=== PATIENT | female | born 1975 | race African-American/Black ===

== ENCOUNTER 2016-09-18 09:55 | Emergency (ER) | payer SELFPAY ==
[~2016-09-18] VITALS: Ht 160 cm; Wt 58.0 kg
[~2016-09-18 09:55] MED LIST: NAPR-576 PO; POTA20IN3 PO
[2016-09-18 09:57] VITALS: BP 114/72; PULSE 83; RESP 18; TEMP 99.2; O2SAT 100
[2016-09-18] MEDS ORDERED: SODIUM CHLOR 0.9% 1000 ML INJ 1,000 ML IV SCH (10:13)
[2016-09-18] MEDS ORDERED: SODIUM CHLORIDE 0.9% FLUSH 5 ML FLUSH IVF PRN (10:15)
[2016-09-18] MEDS ORDERED: MORPHINE SULFATE 4 MG/ML INJ IV PUSH ONE (10:15)
[2016-09-18] MEDS ORDERED: ONDANSETRON HCL 4 MG/2 ML VIAL IVP ONE (10:15)
--- NOTE | 2016-09-18 10:16 | PD ---
HPI Chief Complaint: Pain: Acute or Chronic Time Seen by Provider: 10:09 Travel History International Travel<30 days: No Contact w/Intl Traveler<30days: No Traveled to known affect area: No History of Present Illness HPI 40-year-old female with history of uterine fibroids, currently being evaluated for possible need of hysterectomy, presents to the ER today for several days of pelvic abdominal pains, nausea, vomiting, and dark vaginal bleeding according to her. She states she has used 7 pads today already. She denies any fevers or any other symptoms. Modifying Factors: None Associated Signs & Symptoms: Nausea, vomiting, pelvic pains, vaginal bleeding Risk Factors: Uterine fibroids PFSH Past Medical History Anemia: Yes Cancer: No Cardiovascular Problems: No Diminished Hearing: No Endocrine: No Gastrointestinal Disorders: No Genitourinary: Yes (UTI) Immune Disorder: No Implanted Vascular Access Dvce: No Musculoskeletal: No Neurologic: No Psychiatric: No Reproductive: No Respiratory: No Tetanus Vaccination: < 5 Years ?: Not LMP: 09/17/16 : 1 Para: 1 Past Surgical History Pacemaker: No Other Surgery: No Social History Alcohol Use: No Tobacco Use: Yes (09/02 PPD) Substance Use: No Allergies-Medications (Allergen,Severity, Reaction): Coded Allergies: Penicillin (Verified Allergy, Severe, HIVES, 09/18/16) Reported Meds & Prescriptions Reported Meds & Active Scripts Active Review of Systems Except as stated in HPI: all other systems reviewed are Neg Physical Exam Narrative GENERAL: Well-nourished, well-developed middle age -[place] female patient in no acute distress. SKIN: Warm and dry. HEAD: Normocephalic. EYES: No scleral icterus. No injection or drainage. NECK: Supple, trachea midline. CARDIOVASCULAR: Regular rate and rhythm without murmurs, gallops, or rubs. RESPIRATORY: Breath sounds equal bilaterally. No accessory muscle use. GASTROINTESTINAL: Abdomen soft, pelvic tenderness without guarding or rebound, nondistended. GENITOURINARY: Normal external genitalia without lesions or erythema. Vaginal vault with dark blood but no significant drainage. Cervical os was closed without drainage. No cervical motion tenderness. Uterus enlarged, fibroid. Bilateral adnexa nontender without masses. MUSCULOSKELETAL: No cyanosis, or edema. BACK: Nontender without obvious deformity. No CVA tenderness. Data Data Last Documented VS Vital Signs Date Time Temp Pulse Resp B/P Pulse Ox O2 Delivery O2 Flow Rate FiO2 09/18/16 10:01 80 18 09/18/16 09:57 99.2 114/72 100 Orders Urinalysis - C+S If Indicated (09/18/16 10:03) Ed Urine Pregnancytest Poc (09/18/16 10:03) Complete Blood Count With Diff (09/18/16 10:13) Comprehensive Metabolic Panel (09/18/16 10:13) Iv Access Insert/Monitor (09/18/16 10:13) Ecg Monitoring (09/18/16 10:13) Oximetry (09/18/16 10:13) Morphine Inj (Morphine Inj) (09/18/16 10:15) Ondansetron Inj (Zofran Inj) (09/18/16 10:15) Sodium Chlor 0.9% 1000 Ml Inj (Ns 1000 M (09/18/16 10:13) Sodium Chloride 0.9% Flush (Ns Flush) (09/18/16 10:15) Urine Culture (09/18/16 10:40) Labs Laboratory Tests Test 09/18/16 09/18/16 10:30 10:40 White Blood Count 5.6 TH/MM3 Red Blood Count 4.48 MIL/MM3 Hemoglobin 8.5 GM/DL Hematocrit 27.3 % Mean Corpuscular Volume 60.9 FL Mean Corpuscular Hemoglobin 19.0 PG Mean Corpuscular Hemoglobin 31.2 % Concent Red Cell Distribution Width 19.6 % Platelet Count 616 TH/MM3 Mean Platelet Volume 7.6 FL Neutrophils (%) (Auto) % Lymphocytes (%) (Auto) % Monocytes (%) (Auto) % Eosinophils (%) (Auto) % Basophils (%) (Auto) % Neutrophils # (Auto) TH/MM3 Lymphocytes # (Auto) TH/MM3 Monocytes # (Auto) TH/MM3 Eosinophils # (Auto) TH/MM3 Basophils # (Auto) TH/MM3 CBC Comment AUTO DIFF Differential Total Cells 100 Counted Neutrophils % (Manual) 68 % Band Neutrophils % 2 % Lymphocytes % 14 % Monocytes % 8 % Eosinophils % 5 % Basophils % 3 % Neutrophils # (Manual) 3.9 TH/MM3 Differential Comment FINAL DIFF MANUAL Platelet Estimate HIGH Platelet Morphology Comment NORMAL Target Cells 1+ Sodium Level 140 MEQ/L Potassium Level 3.6 MEQ/L Chloride Level 109 MEQ/L Carbon Dioxide Level 24.7 MEQ/L Anion Gap 6 MEQ/L Blood Urea Nitrogen 7 MG/DL Creatinine 0.81 MG/DL Estimat Glomerular Filtration 94 ML/MIN Rate Random Glucose 105 MG/DL Calcium Level 8.6 MG/DL Total Bilirubin 0.1 MG/DL Aspartate Amino Transf 9 U/L (AST/SGOT) Alanine Aminotransferase 12 U/L (ALT/SGPT) Alkaline Phosphatase 61 U/L Total Protein 7.5 GM/DL Albumin 3.2 GM/DL Urine Color YELLOW Urine Turbidity CLEAR Urine pH 6.0 Urine Specific [place] 1.023 Urine Protein NEG mg/dL Urine Glucose (UA) NEG mg/dL Urine Ketones NEG mg/dL Urine Occult Blood MOD Urine Nitrite POS Urine Bilirubin NEG Urine Urobilinogen 0.2 MG/DL Urine Leukocyte Esterase NEG Urine RBC 0-3 /hpf Urine WBC 0-2 /hpf Urine Squamous Epithelial 0-5 /hpf Cells Microscopic Urinalysis Comment CULTURE INDICATED MDM Medical Decision Making Medical Screen Exam Complete: Yes Emergency Medical Condition: Yes Medical Record Reviewed: Yes Interpretation(s) Laboratory Tests Test 09/18/16 10:30 Hemoglobin 8.5 GM/DL (11.6-15.3) Hematocrit 27.3 % (35.0-46.0) Mean Corpuscular Volume 60.9 FL (80.0-100.0) Mean Corpuscular Hemoglobin 19.0 PG (27.0-34.0) Mean Corpuscular Hemoglobin 31.2 % Concent (32.0-36.0) Red Cell Distribution Width 19.6 % (11.6-17.2) Platelet Count 616 TH/MM3 (150-450) Eosinophils % 5 % (0-4) Basophils % 3 % (0-2) Platelet Estimate HIGH (NORMAL) Target Cells 1+ (NORMAL) Chloride Level 109 MEQ/L (98-107) Total Bilirubin 0.1 MG/DL (0.2-1.0) Aspartate Amino Transf 9 U/L (15-37) (AST/SGOT) Albumin 3.2 GM/DL (3.4-5.0) Differential Diagnosis Pelvic pains, vaginal bleeding, nausea and vomitinggastroenteritis versus uterine fibroids versus cervicitis versus dysmenorrhea versus ectopic versus Threatened AB Narrative Course Pelvic exam shows blood within the vault, uterine fibroids. At this point, her hemoglobin is 8.5. Vital signs are stable in the ER. I do not suspect other acute processes. My plan would be to refer her back to [facility] regarding this issue. Return for any worsening in bleeding or new issues as needed. The plan has discussed with the patient and she states understanding. Diagnosis Primary Impression: Uterine fibroid Med/Other Pt SpecificInfo: Prescription(s) given Scripts Ibuprofen (Motrin Ib)200 Mg [id number] Mg PO Q6H PRN (PAIN SCALE 1 TO 10) #21 TAB Ref 0 Prov:Michael Bruno MD 09/18/16 Ferrous Sulfate (Iron)325 Mg [id number] Mg PO DAILY #15 TAB Ref 0 Take Prov:Michael Bruno MD 09/18/16 Disposition: 01 DISCHARGE HOME Condition: Stable Michael Bruno MD Sep 18, 2016 10:16
[2016-09-18 10:57] LABS: HEMATOCRIT 27.3 % (35.0-46.0); MEAN CELL VOLUME 60.9 FL (80.0-100.0); MEAN CORPUSCULAR HGB CONC 31.2 % (32.0-36.0); PLATELET COUNT 616 TH/MM3 (150-450); RED BLOOD COUNT 4.48 MIL/MM3 (4.00-5.30); RED CELL DISTRIBUTION WIDTH 19.6 % (11.6-17.2); WHITE BLOOD COUNT 5.6 TH/MM3 (4.0-11.0)
[2016-09-18 10:58] LABS: BLOOD, URINE MOD (NEG); GLUCOSE,URINE NEG (NEG); KETONE, URINE NEG (NEG); NITRITE,URINE POS (NEG); URINE COLOR YELLOW (YELLW/STRAW)
[2016-09-18 11:04] LABS: HEMO FLAGS AUTO DIFF
[2016-09-18 11:08] LABS: RBC, URINE 0-3 /hpf (0-3); SQUAMOUS EPITHELIAL CELL URINE 0-5 /hpf (0-5); WBC, URINE 0-2 /hpf (0-5)
[2016-09-18 11:09] LABS: COMMENT (UR) CULTURE INDICATED; CULTURE IF INDICATED CULTURE INDICATED
[2016-09-18 11:13] LABS: ALT (GPT) 12 U/L (10-53); ANION GAP 6 MEQ/L (5-15); AST (GOT) 9 U/L (15-37); BICARBONATE 24.7 MEQ/L (21.0-32.0); BLOOD UREA NITROGEN 7 MG/DL (7-18); CHLORIDE 109 MEQ/L (98-107); GLOMERULAR FILTRATION RATE 94 ML/MIN (>89); POTASSIUM 3.6 MEQ/L (3.5-5.1); SODIUM (NA) 140 MEQ/L (136-145)
[2016-09-18 11:15] LABS: ALKALINE PHOSPHATASE 61 U/L (45-117); TOTAL BILIRUBIN ADULT 0.1 MG/DL (0.2-1.0)
[2016-09-18 11:47] LABS: BANDS 2 % (0-6); BASOPHILS 3 % (0-2); EOSINOPHILS 5 % (0-4); NEUTROPHIL # MANUAL DIFF 3.9 TH/MM3 (1.8-7.7); PLATELET ESTIMATE SMEAR HIGH (NORMAL); PLATELET MORPHOLOGY NORMAL (NORMAL); POLYS (SEG NEUTROPHILS) 68 % (16-70); SCAN/DIFF FINAL DIFF MANUAL; TARGET CELLS 1+ (NORMAL); WBC DIFF SAMPLE 100
[2016-09-18] MEDS ORDERED: FERR1TAB36 PO (12:12)
[2016-09-18] MEDS ORDERED: MOTR200T4 PO (12:12)
[2016-09-18 13:22] VITALS: O2SAT 96
== END 2016-09-18 13:44 | disposition home or self-care (01) ==
LOC: NEPC 09:55
DX: D25.9 Leiomyoma of uterus, unspecified (principal); R11.2 Nausea with vomiting, unspecified; N93.9 Abnormal uterine and vaginal bleeding, unspecified; F17.200 Nicotine dependence, unspecified, uncomplicated; Z86.2 Personal history of diseases of the blood and blood-forming organs and certain disorders involving the immune mechanism; Z87.440 Personal history of urinary (tract) infections
CPT/HCPCS: 80053; 81001; 84703; 85007; 85027; 87086; 96361; 96374; 96375; 99283; J2270; J2405; J7030

== ENCOUNTER 2016-11-27 17:14 | Emergency (ER) | payer SELFPAY ==
[~2016-11-27] VITALS: Ht 160 cm; Wt 55.0 kg
[~2016-11-27 17:14] MED LIST changes: +FERR1TAB36 PO; +MOTR200T4 PO; -NAPR-576 PO; -POTA20IN3 PO
[2016-11-27 17:34] VITALS: BP 97/57; PULSE 78; RESP 16; TEMP 98.3; O2SAT 100
== END 2016-11-27 18:57 | disposition left against medical advice (07) ==
LOC: NED 17:14
DX: R10.9 Unspecified abdominal pain (principal); Z53.21 Procedure and treatment not carried out due to patient leaving prior to being seen by health care provider
CPT/HCPCS: 99281

== ENCOUNTER 2017-01-07 14:12 | Emergency (ER) | payer SELFPAY ==
[~2017-01-07] VITALS: Ht 160 cm; Wt 59.0 kg
[2017-01-07] MEDS ORDERED: SODIUM CHLOR 0.9% 1000 ML INJ 1,000 ML IV SCH (14:27)
--- NOTE | 2017-01-07 14:28 | PD ---
HPI Chief Complaint: nausea and vomiting Time Seen by Provider: 14:28 Travel History International Travel<30 days: No Contact w/Intl Traveler<30days: No History of Present Illness HPI 41-year-old female with a history of uterine fibroids, iron deficiency anemia, gastritis presents to the emergency department for evaluation of low abdominal pain for 3 days and nausea and vomiting for one day. The patient states that she's had mild lower abdominal cramping for the past 3 days that worsened today when she began vomiting. States that she had multiple episodes of nonbloody nonbilious emesis today. States that she has had similar symptoms in the past when she is anemic. She admits she has not been taking her iron supplementation as prescribed. She denies any fever, chills, chest pain, shortness of breath, diarrhea, constipation, bloody stool, lightheadedness, dizziness. She has a history of symptomatic uterine fibroids but has not yet had a hysterectomy. No other complaints. PFSH Past Medical History Anemia: Yes Cancer: No Cardiovascular Problems: No Diminished Hearing: No Endocrine: No Gastrointestinal Disorders: No Immune Disorder: No Implanted Vascular Access Dvce: No Musculoskeletal: No Neurologic: No Psychiatric: No Reproductive: Yes (uterine fibroids) Respiratory: No : 1 Para: 1 Past Surgical History Pacemaker: No Other Surgery: No Social History Alcohol Use: No Tobacco Use: Yes (/2 PPD) Substance Use: No Allergies-Medications (Allergen,Severity, Reaction): Coded Allergies: Penicillin (Verified Allergy, Severe, HIVES, 09/18/16) Reported Meds & Prescriptions Reported Meds & Active Scripts Active Motrin Ib (Ibuprofen) 200 Mg Tab 600 Mg PO Q6H PRN Iron (Ferrous Sulfate) 325 Mg Tab 325 Mg PO DAILY Take Review of Systems Except as stated in HPI: all other systems reviewed are Neg Physical Exam Narrative GENERAL: Well-nourished and well-developed patient in no acute distress who is nontoxic appearing. SKIN: Warm and dry. HEAD: Normocephalic and atraumatic. EYES: No injection, drainage, or hyphema noted. PERRLA. EOMI. ENT: No nasal drainage noted. Oropharynx is clear. NECK: Supple and the trachea is midline. CARDIOVASCULAR: Regular rate and rhythm. RESPIRATORY: Breath sounds are equal bilaterally with no accessory muscle use, wheezing, rhonchi, or crackles. GASTROINTESTINAL: Generalized abdominal tenderness to palpation, reports worse over suprapubic region. Abdomen is soft and nondistended. No rebound tenderness or guarding. MUSCULOSKELETAL: No obvious deformities, swelling, cyanosis, or ecchymosis is present throughout the upper and lower extremities. Patient has full range of motion without any signs of neurovascular compromise. NEUROLOGICAL: Awake, alert, and oriented. Normal speech and gait. Cranial nerves are grossly intact. Data Data Last Documented VS Vital Signs Date Time Temp Pulse Resp B/P Pulse Ox O2 Delivery O2 Flow Rate FiO2 01/07/17 15:41 18 01/07/17 14:39 100 Room Air 01/07/17 14:32 86 121/76 Orders Complete Blood Count With Diff (01/07/17 14:27) Comprehensive Metabolic Panel (01/07/17 14:27) Lipase (01/07/17 14:27) Urinalysis - C+S If Indicated (01/07/17 14:27) Iv Access Insert/Monitor (01/07/17 14:27) Ecg Monitoring (01/07/17 14:27) Oximetry (01/07/17 14:27) Morphine Inj (Morphine Inj) (01/07/17 14:30) Ondansetron Inj (Zofran Inj) (01/07/17 14:30) Sodium Chlor 0.9% 1000 Ml Inj (Ns 1000 M (01/07/17 14:27) Sodium Chloride 0.9% Flush (Ns Flush) (01/07/17 14:30) Ed Urine Pregnancytest Poc (01/07/17 15:46) Labs Laboratory Tests Test 01/07/17 01/07/17 14:50 16:00 White Blood Count 12.2 TH/MM3 Red Blood Count 4.36 MIL/MM3 Hemoglobin 7.5 GM/DL Hematocrit 24.8 % Mean Corpuscular Volume 56.9 FL Mean Corpuscular Hemoglobin 17.1 PG Mean Corpuscular Hemoglobin 30.1 % Concent Red Cell Distribution Width 23.7 % Platelet Count 575 TH/MM3 Mean Platelet Volume 8.5 FL Neutrophils (%) (Auto) 88.1 % Lymphocytes (%) (Auto) 5.9 % Monocytes (%) (Auto) 4.6 % Eosinophils (%) (Auto) 0.6 % Basophils (%) (Auto) 0.8 % Neutrophils # (Auto) 10.7 TH/MM3 Lymphocytes # (Auto) 0.7 TH/MM3 Monocytes # (Auto) 0.6 TH/MM3 Eosinophils # (Auto) 0.1 TH/MM3 Basophils # (Auto) 0.1 TH/MM3 CBC Comment AUTO DIFF Sodium Level 135 MEQ/L Potassium Level 4.0 MEQ/L Chloride Level 103 MEQ/L Carbon Dioxide Level 25.5 MEQ/L Anion Gap 7 MEQ/L Blood Urea Nitrogen 10 MG/DL Creatinine 0.63 MG/DL Estimat Glomerular Filtration 125 ML/MIN Rate Random Glucose 96 MG/DL Calcium Level 9.3 MG/DL Total Bilirubin 0.2 MG/DL Aspartate Amino Transf 20 U/L (AST/SGOT) Alanine Aminotransferase 18 U/L (ALT/SGPT) Alkaline Phosphatase 73 U/L Total Protein 8.0 GM/DL Albumin 3.5 GM/DL Lipase 88 U/L Urine Color YELLOW Urine Turbidity HAZY Urine pH 7.5 Urine Specific [place] 1.019 Urine Protein TRACE mg/dL Urine Glucose (UA) NEG mg/dL Urine Ketones NEG mg/dL Urine Occult Blood NEG Urine Nitrite NEG Urine Bilirubin NEG Urine Urobilinogen LESS THAN 2.0 MG/DL Urine Leukocyte Esterase NEG Urine RBC LESS THAN 1 /hpf Urine WBC 1 /hpf Urine Squamous Epithelial 5 /hpf Cells Urine Bacteria RARE /hpf Urine Mucus FEW /lpf Microscopic Urinalysis Comment CULT NOT INDICATED MDM Medical Decision Making Medical Screen Exam Complete: Yes Emergency Medical Condition: Yes Differential Diagnosis Uterine fibroids versus symptomatic anemia versus gastroparesis versus dehydration versus gastroenteritis Narrative Course 41-year-old female is brought to the emergency department by EMS for evaluation of abdominal pain, nausea and vomiting. Patient is afebrile, vital signs are stable. She has generalized abdominal tenderness however no peritoneal signs. The patient has been seen in our emergency department multiple times in the past for similar symptoms and she has a history of frequent emesis. IV access is obtained, labs of been drawn and sent. Patient is placed on cardiac telemetry and pulse oximetry monitoring. Patient is administered IV fluids, Zofran and morphine. CBC shows slightly elevated white blood cell count of 12.2 and anemia with a hemoglobin of 7.5 and hematocrit of 24.8. CMP is unremarkable. Urinalysis is unremarkable. The patient has a known history of iron deficiency anemia and her CBC reflects the same. She has not been taking her iron supplementation. Her vitals are stable and she has no active bleeding. She has not had any vomiting while here in the ED. She is instructed to resume taking her iron supplementation and to follow-up with her PCP. I discussed the case with my attending physician Dr. Schaeffer who is aware of the patients history, physical examination findings, and treatment plan. Diagnosis Primary Impression: Iron deficiency anemia Qualified Code: D50.9 - Iron deficiency anemia, unspecified iron deficiency anemia type Additional Impressions: Nausea & vomiting Qualified Code: R11.2 - Non-intractable vomiting with nausea, unspecified vomiting type Abdominal pain Qualified Code: R10.30 - Lower abdominal pain Referrals: Primary Care Physician Patient Instructions: General Instructions, Iron Deficiency Anemia (ED) Additional Instructions: Take medications as prescribed. Follow-up with your Primary Care Physician. Return to the ED for any acute worsening of symptoms. Med/Other Pt SpecificInfo: Prescription(s) given Scripts Ferrous Sulfate 325 Mg [id number] Mg PO DAILY #30 TAB Ref 0 Prov:Lorri Schaeffer MD 01/07/17 Disposition: 01 DISCHARGE HOME Condition: Stable Tammy Nowak January 07, 2017 14:28
[2017-01-07] MEDS ORDERED: SODIUM CHLORIDE 0.9% FLUSH 10 ML FLUSH IV FLUSH PRN (14:30)
[2017-01-07] MEDS ORDERED: MORPHINE SULFATE 4 MG/ML INJ IV PUSH ONE (14:30)
[2017-01-07] MEDS ORDERED: ONDANSETRON HCL 4 MG/2 ML VIAL IVP ONE (14:30)
[2017-01-07 14:32] VITALS: BP 121/76; PULSE 86; RESP 16
[2017-01-07 14:39] VITALS: O2SAT 100
[2017-01-07 15:05] LABS: AUTOMATED NEUTROPHIL # 10.7 TH/MM3 (1.8-7.7); BASOPHIL # 0.1 TH/MM3 (0-0.2); BASOPHIL % 0.8 % (0.0-2.0); EOSINOPHIL # 0.1 TH/MM3 (0-0.4); EOSINOPHIL % 0.6 % (0.0-4.0); HEMATOCRIT 24.8 % (35.0-46.0); LYMPH % 5.9 % (9.0-44.0); LYMPHOCYTE # 0.7 TH/MM3 (1.0-4.8); MEAN CELL VOLUME 56.9 FL (80.0-100.0); MEAN CORPUSCULAR HEMOGLOBIN 17.1 PG (27.0-34.0); MEAN CORPUSCULAR HGB CONC 30.1 % (32.0-36.0); MONO % 4.6 % (0.0-8.0); NEUT % 88.1 % (16.0-70.0); PLATELET COUNT 575 TH/MM3 (150-450); RED BLOOD COUNT 4.36 MIL/MM3 (4.00-5.30); RED CELL DISTRIBUTION WIDTH 23.7 % (11.6-17.2); WHITE BLOOD COUNT 12.2 TH/MM3 (4.0-11.0)
[2017-01-07 15:25] LABS: ANION GAP 7 MEQ/L (5-15); AST (GOT) 20 U/L (15-37); BICARBONATE 25.5 MEQ/L (21.0-32.0); CHLORIDE 103 MEQ/L (98-107); GLOMERULAR FILTRATION RATE 125 ML/MIN (>89); SODIUM (NA) 135 MEQ/L (136-145)
[2017-01-07 15:29] LABS: ALKALINE PHOSPHATASE 73 U/L (45-117); ALT (GPT) 18 U/L (10-53); BLOOD UREA NITROGEN 10 MG/DL (7-18); TOTAL BILIRUBIN ADULT 0.2 MG/DL (0.2-1.0)
[2017-01-07 15:31] LABS: HEMO FLAGS AUTO DIFF
[2017-01-07 15:41] VITALS: RESP 18
[2017-01-07 16:16] LABS: BACTERIA, URINE RARE /hpf; BLOOD, URINE NEG (NEG); GLUCOSE,URINE NEG (NEG); KETONE, URINE NEG (NEG); MUCUS URINE FEW /lpf (OCC); NITRITE,URINE NEG (NEG); PH, URINE 7.5 (5.0-8.5); SQUAMOUS EPITHELIAL CELL URINE 5 /hpf (0-5); URINE COLOR YELLOW (YELLW/STRAW)
[2017-01-07 16:20] LABS: COMMENT (UR) CULT NOT INDICATED; CULTURE IF INDICATED CULT NOT INDICATED
[2017-01-07] MEDS ORDERED: FERR325T PO (16:26)
[2017-01-07 16:55] VITALS: BP 128/70
[2017-01-07 17:00] LABS: KERATOCYTES 1+ (NORMAL); OVALOCYTES 1+ (NORMAL); PLATELET ESTIMATE SMEAR HIGH (NORMAL); PLATELET MORPHOLOGY NORMAL (NORMAL); SCAN/DIFF AUTO DIFF CONFIRMED; TARGET CELLS 2+ (NORMAL)
[2017-01-07 17:01] LABS: ACANTHOCYTES OCC (NORMAL)
[2017-01-08] MEDS ORDERED: ZOFR4TAB PO (16:29)
== END 2017-01-07 16:56 | disposition home or self-care (01) ==
LOC: NEPD 14:12
DX: D50.9 Iron deficiency anemia, unspecified (principal); R11.2 Nausea with vomiting, unspecified; R10.30 Lower abdominal pain, unspecified; F17.210 Nicotine dependence, cigarettes, uncomplicated
CPT/HCPCS: 80053; 81001; 83690; 84703; 85025; 96361; 96374; 96375; 99284; J2270; J2405; J7030

== ENCOUNTER 2017-01-08 13:13 | Emergency (ER) | payer SELFPAY ==
[~2017-01-08] VITALS: Ht 160 cm; Wt 60.0 kg
[~2017-01-08 13:13] MED LIST changes: +FERR325T PO
[2017-01-08 13:15] VITALS: BP 133/102; PULSE 86; RESP 18; TEMP 99.7; O2SAT 99
--- NOTE | 2017-01-08 13:27 | PD ---
Physical Exam Date Seen by Provider: January 08, 2017 Time Seen by Provider: 13:26 Narrative 41 year old female presents to the emergency department for vomiting and lower abdominal pain that started yesterday morning. She was seen yesterday for the same. Patient has a history of anemia and fibroids. Vital signs reviewed. Patient awaiting bed placement. Data Data Last Documented VS Vital Signs Date Time Temp Pulse Resp B/P Pulse Ox O2 Delivery O2 Flow Rate FiO2 01/08/17 13:15 99.7 86 18 133/102 99 MDM Supervised Visit with KEYLA: Kira Francis January 08, 2017 13:27
[2017-01-08] MEDS ORDERED: SODIUM CHLOR 0.9% 1000 ML INJ 1,000 ML IV SCH (14:32)
[2017-01-08 14:34] LABS: MEAN CORPUSCULAR HGB CONC 29.1 % (32.0-36.0)
--- NOTE | 2017-01-08 14:37 | PD ---
HPI Chief Complaint: GI Complaint Time Seen by Provider: 14:27 Travel History International Travel<30 days: No Contact w/Intl Traveler<30days: No Traveled to known affect area: No History of Present Illness HPI This is a 41-year-old female with history of iron deficiency anemia, uterine fibroids, presents for evaluation of abdominal pain, nausea and vomiting. Symptom onset yesterday morning. She describes generalized abdominal pain, aching, constant, no aggravating or relieving factors, associated with approximate 6 episodes of nonbloody emesis on a daily basis. Denies any fevers or chills, flank pain, dysuria, vaginal bleeding or discharge. Was seen yesterday, however consistent with chronic severe iron deficiency anemia, discharged with iron supplementation. She was previously in the past on iron supplementation, hasn't been using any of the past year. She presents today because the symptoms have persisted which prompted evaluation. She reports that she does have a degree of chronic pelvic pain secondary to her uterine fibroids but the pain that she is experiencing today is different, more generalized. Denies any history of abdominal surgeries. Denies any recent dietary changes. She does not currently have a primary care physician. No other complaints. PFSH Past Medical History Anemia: Yes Cancer: No Cardiovascular Problems: No Diminished Hearing: No Endocrine: No Gastrointestinal Disorders: No Immune Disorder: No Implanted Vascular Access Dvce: No Musculoskeletal: No Neurologic: No Psychiatric: No Reproductive: Yes (uterine fibroids) Respiratory: No : 1 Para: 1 Past Surgical History Pacemaker: No Other Surgery: No Social History Alcohol Use: No Tobacco Use: Yes Substance Use: No Allergies-Medications (Allergen,Severity, Reaction): Coded Allergies: Penicillin (Verified Allergy, Severe, HIVES, 01/08/17) Reported Meds & Prescriptions Reported Meds & Active Scripts Active Zofran (Ondansetron HCl) 4 Mg Tab 4 Mg PO Q6HR PRN Ferrous Sulfate 325 Mg Tab 325 Mg PO DAILY Motrin Ib (Ibuprofen) 200 Mg Tab 600 Mg PO Q6H PRN Iron (Ferrous Sulfate) 325 Mg Tab 325 Mg PO DAILY Take Review of Systems Except as stated in HPI: all other systems reviewed are Neg Physical Exam Narrative GENERAL: Well-developed well-nourished female who appears uncomfortable on initial examination. Her vital signs have been reviewed. SKIN: Warm and dry. HEAD: Atraumatic. Normocephalic. EYES: Pupils equal and round. No scleral icterus. No injection or drainage. ENT: No nasal bleeding or discharge. Mucous membranes pink and moist. NECK: Trachea midline. No JVD. CARDIOVASCULAR: Regular rate and rhythm. No murmur appreciated. RESPIRATORY: No accessory muscle use. Clear to auscultation. Breath sounds equal bilaterally. GASTROINTESTINAL: Abdomen soft, nondistended, generalized tenderness to palpation without focality. There is no guarding. There is no CVA tenderness. MUSCULOSKELETAL: No obvious deformities. No edema. NEUROLOGICAL: Awake and alert. No obvious cranial nerve deficits. Motor grossly within normal limits. Normal speech. PSYCHIATRIC: Appropriate mood and affect; insight and judgment normal. Data Data Last Documented VS Vital Signs Date Time Temp Pulse Resp B/P Pulse Ox O2 Delivery O2 Flow Rate FiO2 01/08/17 15:55 66 16 114/66 98 Room Air 01/08/17 13:15 99.7 Orders Complete Blood Count With Diff (01/08/17 14:32) Comprehensive Metabolic Panel (01/08/17 14:32) Lipase (01/08/17 14:32) Urinalysis - C+S If Indicated (01/08/17 14:32) Ct Abd/Pel W Iv Contrast(Rout) (01/08/17 14:32) Iv Access Insert/Monitor (01/08/17 14:32) Sodium Chlor 0.9% 1000 Ml Inj (Ns 1000 M (01/08/17 14:32) Ed Urine Pregnancytest Poc (01/08/17 14:32) Metoclopramide Inj (Reglan Inj) (01/08/17 14:45) Ketorolac Inj (Toradol Inj) (01/08/17 14:45) Morphine Inj (Morphine Inj) (01/08/17 14:45) Iohexol 350 Inj (Omnipaque 350 Inj) (01/08/17 15:47) Potassium Chloride (Kcl) (01/08/17 16:30) Labs Laboratory Tests Test 01/08/17 15:05 White Blood Count 11.6 TH/MM3 Red Blood Count 4.85 MIL/MM3 Hemoglobin 8.1 GM/DL Hematocrit 28.0 % Mean Corpuscular Volume 57.8 FL Mean Corpuscular Hemoglobin 16.8 PG Mean Corpuscular Hemoglobin 29.1 % Concent Red Cell Distribution Width 24.2 % Platelet Count 576 TH/MM3 Mean Platelet Volume 8.9 FL Neutrophils (%) (Auto) % Lymphocytes (%) (Auto) % Monocytes (%) (Auto) % Eosinophils (%) (Auto) % Basophils (%) (Auto) % Neutrophils # (Auto) TH/MM3 Lymphocytes # (Auto) TH/MM3 Monocytes # (Auto) TH/MM3 Eosinophils # (Auto) TH/MM3 Basophils # (Auto) TH/MM3 CBC Comment AUTO DIFF Urine Color YELLOW Urine Turbidity CLEAR Urine pH 6.0 Urine Specific [place] 1.034 Urine Protein 30 mg/dL Urine Glucose (UA) NEG mg/dL Urine Ketones 40 mg/dL Urine Occult Blood NEG Urine Nitrite NEG Urine Bilirubin NEG Urine Urobilinogen LESS THAN 2.0 MG/DL Urine Leukocyte Esterase NEG Urine RBC LESS THAN 1 /hpf Urine WBC 4 /hpf Urine Squamous Epithelial 3 /hpf Cells Urine Mucus MANY /lpf Microscopic Urinalysis Comment CULT NOT INDICATED Sodium Level 136 MEQ/L Potassium Level 3.3 MEQ/L Chloride Level 102 MEQ/L Carbon Dioxide Level 25.1 MEQ/L Anion Gap 9 MEQ/L Blood Urea Nitrogen 11 MG/DL Creatinine 0.76 MG/DL Estimat Glomerular Filtration 101 ML/MIN Rate Random Glucose 84 MG/DL Calcium Level 9.3 MG/DL Total Bilirubin 0.3 MG/DL Aspartate Amino Transf 16 U/L (AST/SGOT) Alanine Aminotransferase 18 U/L (ALT/SGPT) Alkaline Phosphatase 76 U/L Total Protein 8.4 GM/DL Albumin 3.5 GM/DL Lipase 65 U/L MDM Medical Decision Making Medical Screen Exam Complete: Yes Emergency Medical Condition: Yes Medical Record Reviewed: Yes Differential Diagnosis Uterine fibroids, endometriosis, pelvic inflammatory disease, cystitis, appendicitis, colitis, gastroenteritis, dehydration, bowel obstruction, cholecystitis Narrative Course Given the patient's persistent pain, CT of abdomen and pelvis was performed today. Basic lab work was also performed and she was in history of IV fluids, Reglan and morphine. Her laboratory imaging studies have been reviewed. Her hemoglobin is improved 8.1, it was 7.5 yesterday. She has mild hypokalemia, she was given oral potassium. CT of the abdomen and pelvis reveals a small cystic lesion in the right adnexal region. Upon reexamination she is feeling improved. The patient was given information in regards to applying for patient assistance so that she can receive some follow-up. She is planning on doing this. She is encouraged to continue taking the iron supplementation as prescribed yesterday. She will be discharged with a short course of Zofran. Diagnosis Primary Impression: Abdominal pain Qualified Code: R10.9 - Abdominal pain, unspecified location Additional Impressions: Hypokalemia Nausea & vomiting Qualified Code: R11.2 - Nausea and vomiting, intractability of vomiting not specified, unspecified vomiting type Additional Instructions: Zofran for nausea. Follow-up with a primary care physician to establish care for further treatment of this issue. Return for any emergent medical conditions. Med/Other Pt SpecificInfo: Prescription(s) given Scripts Ondansetron (Zofran)4 Mg Tab4 Mg PO Q6HR PRN (NAUSEA OR VOMITING) #20 TAB Ref 0 Prov:Reese Martinez MD 01/08/17 Disposition: 01 DISCHARGE HOME Condition: Stable [place] January 08, 2017 14:37
[2017-01-08 14:45] VITALS: BP 112/72; PULSE 74; RESP 16; O2SAT 99
[2017-01-08] MEDS ORDERED: KETOROLAC TROMETHAMINE 30 MG/ML (IVP) VIAL IV PUSH ONE (14:45)
[2017-01-08] MEDS ORDERED: MORPHINE SULFATE 4 MG/ML INJ IV PUSH ONE (14:45)
[2017-01-08] MEDS ORDERED: METOCLOPRAMIDE HCL 10 MG/2 ML VIAL IV PUSH ONE (14:45)
[2017-01-08 15:33] LABS: MEAN CELL VOLUME 57.8 FL (80.0-100.0); MEAN CORPUSCULAR HEMOGLOBIN 16.8 PG (27.0-34.0); PLATELET COUNT 576 TH/MM3 (150-450); RED BLOOD COUNT 4.85 MIL/MM3 (4.00-5.30); RED CELL DISTRIBUTION WIDTH 24.2 % (11.6-17.2); WHITE BLOOD COUNT 11.6 TH/MM3 (4.0-11.0)
[2017-01-08 15:35] LABS: HEMO FLAGS AUTO DIFF
[2017-01-08 15:45] LABS: ALT (GPT) 18 U/L (10-53); ANION GAP 9 MEQ/L (5-15); AST (GOT) 16 U/L (15-37); BICARBONATE 25.1 MEQ/L (21.0-32.0); BLOOD UREA NITROGEN 11 MG/DL (7-18); CHLORIDE 102 MEQ/L (98-107); GLOMERULAR FILTRATION RATE 101 ML/MIN (>89); POTASSIUM 3.3 MEQ/L (3.5-5.1); SODIUM (NA) 136 MEQ/L (136-145)
[2017-01-08] MEDS ORDERED: IOHEXOL 350 MG/ML 10 ML VIAL (for RAD DIAG) IV ONE (15:47)
[2017-01-08 15:48] LABS: ALKALINE PHOSPHATASE 76 U/L (45-117); TOTAL BILIRUBIN ADULT 0.3 MG/DL (0.2-1.0)
[2017-01-08 15:49] LABS: BLOOD, URINE NEG (NEG); COMMENT (UR) CULT NOT INDICATED; CULTURE IF INDICATED CULT NOT INDICATED; GLUCOSE,URINE NEG (NEG); KETONE, URINE 40 mg/dL (NEG); MUCUS URINE MANY /lpf (OCC); NITRITE,URINE NEG (NEG); SQUAMOUS EPITHELIAL CELL URINE 3 /hpf (0-5); URINE COLOR YELLOW (YELLW/STRAW)
[2017-01-08 15:55] VITALS: BP 114/66; PULSE 66; RESP 16; O2SAT 98
--- NOTE | 2017-01-08 16:22 | RADRPT ---
EXAM DATE/TIME: 01/08/2017 15:37 [facility] COMPARISON: No previous studies available for comparison. INDICATIONS : Patient complains of pain, nausea and vomiting. IV CONTRAST: 91 cc Omnipaque 350 (iohexol) IV Injection Site: Rt AC Lot: [id number] Exp Date: Oct 2019 ORAL CONTRAST: No oral contrast ingested. RADIATION DOSE: 4.98 CTDIvol (mGy) MEDICAL HISTORY : Fibroids SURGICAL HISTORY : None. ENCOUNTER: Initial ACUITY: 1 day PAIN SCALE: 7/10 LOCATION: Bilateral lower quadrant TECHNIQUE: Volumetric scanning of the abdomen and pelvis was performed. Using automated exposure control and adjustment of the mA and/or kV according to patient size, radiation dose was kept as low as reasonably achievable to obtain optimal diagnostic quality images. FINDINGS: Linear area of parenchymal opacity is seen anteriorly in the right lung. There is no pe ricardial effusion. The liver spleen, pancreas, adrenals and kidneys are unremarkable. There is no ascites or adenopathy. Abdominal wall is intact. Pelvic contents are remarkable only for trace free fluid in the pelvis. There is a small cystic mass in the right adnexal region measuring 2.7 cm. CONCLUSION: 1. Trace free fluid in the pelvis. 2. Small cystic mass in the right adnexal region. Alejandro Persaud MD FACR on January 08, 2017 at 16:03 Board Certified Radiologist. This report was verified electronically.
[2017-01-08] MEDS ORDERED: ZOFR4TAB PO (16:29)
[2017-01-08] MEDS ORDERED: POTASSIUM CHLORIDE 20 MEQ CONTROLLED RELEASE TAB PO ONE (16:30)
[2017-01-08 16:52] LABS: ACANTHOCYTES OCC (NORMAL); KERATOCYTES OCC (NORMAL); OVALOCYTES 1+ (NORMAL); PLATELET ESTIMATE SMEAR HIGH (NORMAL); PLATELET MORPHOLOGY NORMAL (NORMAL); SCAN/DIFF AUTO DIFF CONFIRMED; TARGET CELLS 3+ (NORMAL)
== END 2017-01-08 17:22 | disposition home or self-care (01) ==
LOC: NEPD 13:13
DX: R10.84 Generalized abdominal pain (principal); R11.2 Nausea with vomiting, unspecified; E87.6 Hypokalemia
CPT/HCPCS: 74177; 80053; 81001; 83690; 84703; 85025; 96361; 96374; 96375; 99284; J1885; J2270; J2765; J7030; Q9967

== ENCOUNTER 2017-01-27 11:53 | Emergency (ER) | payer SELFPAY ==
[~2017-01-27] VITALS: Ht 160 cm; Wt 60.0 kg
[~2017-01-27 11:53] MED LIST changes: +ZOFR4TAB PO
[2017-01-27 11:54] VITALS: BP 104/61; PULSE 82; RESP 24; TEMP 98.8; O2SAT 100
[2017-01-27 12:21] LABS: MEAN CORPUSCULAR HGB CONC 29.9 % (32.0-36.0)
[2017-01-27] MEDS ORDERED: ONDANSETRON HCL 4 MG/2 ML VIAL IV PUSH ONE (12:30)
[2017-01-27] MEDS ORDERED: SODIUM CHLORID 0.9% 500 ML INJ 500 ML IV ONE (12:30)
[2017-01-27] MEDS ORDERED: MORPHINE SULFATE 4 MG/ML INJ IV PUSH ONE (12:30)
--- NOTE | 2017-01-27 12:30 | PD ---
HPI Chief Complaint: Abdominal Pain Time Seen by Provider: 12:07 Travel History International Travel<30 days: No Contact w/Intl Traveler<30days: No Traveled to known affect area: No History of Present Illness HPI 41-year-old female complains of low abdominal pain nausea vomiting and vaginal bleeding. Patient states that she has history of uterine fibroid and has recurrent low abdominal pain with vaginal bleeding and nausea vomiting. Patient has been seen in emergency room several times in the past. Patient had CT scan abdomen pelvis an MRI of the pelvis in the past. CT and MRI show uterine fibroid. Patient also has history iron deficiency anemia, and on iron pills. Patient states that the pain is cramping pain and sharp pain localized to lower abdomen. Patient denies any pain radiation. On a scale of 1-10 the pain is a 10. PFSH Past Medical History Anemia: Yes Cancer: No Cardiovascular Problems: No Diminished Hearing: No Endocrine: No Gastrointestinal Disorders: No Immune Disorder: No Implanted Vascular Access Dvce: No Musculoskeletal: No Neurologic: No Psychiatric: No Reproductive: Yes (uterine fibroids) Respiratory: No ?: Not : 1 Para: 1 Past Surgical History Pacemaker: No Other Surgery: No Social History Alcohol Use: No Tobacco Use: Yes Substance Use: No Allergies-Medications (Allergen,Severity, Reaction): Coded Allergies: Penicillin (Verified Allergy, Severe, HIVES, 01/27/17) Reported Meds & Prescriptions Reported Meds & Active Scripts Active No Active Prescriptions or Reported Medications Review of Systems General / Constitutional: No: Fever Eyes: No: Visual changes HENT: No: Headaches Cardiovascular: No: Chest Pain or Discomfort Respiratory: No: Shortness of Breath Gastrointestinal: Positive: Nausea, Vomiting, Abdominal Pain Genitourinary: Positive: Vaginal Bleeding, No: Dysuria Musculoskeletal: No: Pain Skin: No Rash Neurologic: No: Weakness Psychiatric: No: Depression Endocrine: No: Polydipsia Hematologic/Lymphatic: No: Easy Bruising Physical Exam Narrative GENERAL: Well-nourished, well-developed patient. SKIN: Focused skin assessment warm/dry. HEAD: Normocephalic. EYES: No scleral icterus. No injection or drainage. NECK: Supple, trachea midline. No JVD or lymphadenopathy. CARDIOVASCULAR: Regular rate and rhythm without murmurs, gallops, or rubs. RESPIRATORY: Breath sounds equal bilaterally. No accessory muscle use. GASTROINTESTINAL: Abdomen soft, nondistended. Patient has moderate tenderness on palpation lower abdomen. No rebound tenderness. No mass. MUSCULOSKELETAL: No cyanosis, or edema. BACK: Nontender without obvious deformity. No CVA tenderness. Neurologic exam: Normal. Data Data Last Documented VS Vital Signs Date Time Temp Pulse Resp B/P Pulse Ox O2 Delivery O2 Flow Rate FiO2 01/27/17 13:18 75 18 96/53 99 Room Air 01/27/17 11:54 98.8 Orders Complete Blood Count With Diff (01/27/17 12:19) Comprehensive Metabolic Panel (01/27/17 12:19) Prothrombin Time / Inr (Pt) (01/27/17 12:19) Act Partial Throm Time (Ptt) (01/27/17 12:19) Urinalysis - C+S If Indicated (01/27/17 12:19) Iv Access Insert/Monitor (01/27/17 12:19) Ecg Monitoring (01/27/17 12:19) Oximetry (01/27/17 12:19) Sodium Chlorid 0.9% 500 Ml Inj (Ns 500 M (01/27/17 12:30) Morphine Inj (Morphine Inj) (01/27/17 12:30) Ondansetron Inj (Zofran Inj) (01/27/17 12:30) Ct Abd/Pel W Iv Contrast(Rout) (01/27/17 12:25) Iohexol 350 Inj (Omnipaque 350 Inj) (01/27/17 14:11) Labs Laboratory Tests Test 01/27/17 01/27/17 12:38 12:39 Urine Color YELLOW Urine Turbidity CLEAR Urine pH 5.5 Urine Specific [place] 1.018 Urine Protein TRACE mg/dL Urine Glucose (UA) NEG mg/dL Urine Ketones NEG mg/dL Urine Occult Blood MOD Urine Nitrite NEG Urine Bilirubin NEG Urine Urobilinogen LESS THAN 2.0 MG/DL Urine Leukocyte Esterase NEG Urine RBC /hpf Urine WBC 1 /hpf Urine Squamous Epithelial 1 /hpf Cells Urine Bacteria RARE /hpf Urine Mucus FEW /lpf Microscopic Urinalysis Comment CULT NOT INDICATED White Blood Count 7.4 TH/MM3 Red Blood Count 4.21 MIL/MM3 Hemoglobin 7.5 GM/DL Hematocrit 24.9 % Mean Corpuscular Volume 59.3 FL Mean Corpuscular Hemoglobin 17.7 PG Mean Corpuscular Hemoglobin 29.9 % Concent Red Cell Distribution Width 24.3 % Platelet Count 840 TH/MM3 Mean Platelet Volume 7.1 FL Neutrophils (%) (Auto) % Lymphocytes (%) (Auto) % Monocytes (%) (Auto) % Eosinophils (%) (Auto) % Basophils (%) (Auto) % Neutrophils # (Auto) TH/MM3 Lymphocytes # (Auto) TH/MM3 Monocytes # (Auto) TH/MM3 Eosinophils # (Auto) TH/MM3 Basophils # (Auto) TH/MM3 CBC Comment AUTO DIFF Differential Total Cells 100 Counted Neutrophils % (Manual) 68 % Lymphocytes % 19 % Monocytes % 4 % Eosinophils % 8 % Basophils % 1 % Neutrophils # (Manual) 5.0 TH/MM3 Differential Comment FINAL DIFF MANUAL Platelet Estimate HIGH Platelet Morphology Comment NORMAL Target Cells 1+ Keratocytes OCC Prothrombin Time SEC Prothromb Time International RATIO Ratio Activated Partial SEC Thromboplast Time Sodium Level 140 MEQ/L Potassium Level 4.1 MEQ/L Chloride Level 105 MEQ/L Carbon Dioxide Level 28.1 MEQ/L Anion Gap 7 MEQ/L Blood Urea Nitrogen 11 MG/DL Creatinine 0.72 MG/DL Estimat Glomerular Filtration 107 ML/MIN Rate Random Glucose 82 MG/DL Calcium Level 9.0 MG/DL Total Bilirubin 0.1 MG/DL Aspartate Amino Transf 20 U/L (AST/SGOT) Alanine Aminotransferase 17 U/L (ALT/SGPT) Alkaline Phosphatase 62 U/L Total Protein 8.3 GM/DL Albumin 3.6 GM/DL MDM Medical Decision Making Medical Screen Exam Complete: Yes Emergency Medical Condition: Yes Interpretation(s) 14 12 PM. CBC with hemoglobin 7.5 hematocrit 24.9. Patient's at baseline. CMP within normal limit. UA is negative. 1437 PM Last Impressions Abdomen/Pelvis CT 01/27/17 1225 Signed Impressions: Service Date/Time: Friday, January 27, 2017 14:03 - CONCLUSION: 1. No acute finding is identified within the abdomen or pelvis. 2. However, the uterus is significantly enlarged and contains multiple masses. Prior MRI demonstrated these masses have features typical of leiomyomas. One of the largest lesions measures approximately 4.5 cm. Comparing today's study to the prior MRI indicates no definite interval change. Santos Linares MD Differential Diagnosis Differential diagnosis including dysfunctional uterine bleeding, uterine fibroids, colitis, UTI, pyelonephritis, cervicitis, PID. Narrative Course 41-year-old female with recurrent low abdominal pain and vaginal bleeding. History of uterine fibroid. Normal saline solution 500 cc IV bolus. Morphine 2 mg IV. Zofran 4 mg IV. Diagnosis Primary Impression: Uterine fibroid Qualified Code: D25.9 - Uterine leiomyoma, unspecified location Additional Impression: Pelvic pain Patient Instructions: General Instructions Additional Instructions: Take medication as needed for pain. Follow-up with quality assurance monitor body. Return if worse. Med/Other Pt SpecificInfo: Prescription(s) given Scripts Tramadol 50 Mg Tab50 Mg PO Q6H PRN (PAIN) #30 TAB Ref 0 Prov:Isaac Cole MD 01/27/17 Meloxicam (Mobic)15 Mg Tab15 Mg PO DAILY #20 TAB Prov:Isaac Cole MD 01/27/17 Disposition: 01 DISCHARGE HOME Condition: Stable Isaac Cole MD January 27, 2017 12:30
[2017-01-27 12:40] VITALS: O2SAT 98
[2017-01-27 12:48] LABS: HEMATOCRIT 24.9 % (35.0-46.0); MEAN CELL VOLUME 59.3 FL (80.0-100.0); MEAN CORPUSCULAR HEMOGLOBIN 17.7 PG (27.0-34.0); PLATELET COUNT 840 TH/MM3 (150-450); RED BLOOD COUNT 4.21 MIL/MM3 (4.00-5.30); RED CELL DISTRIBUTION WIDTH 24.3 % (11.6-17.2); WHITE BLOOD COUNT 7.4 TH/MM3 (4.0-11.0)
[2017-01-27 12:51] LABS: HEMO FLAGS AUTO DIFF
[2017-01-27 12:51] LABS: BACTERIA, URINE RARE /hpf; BLOOD, URINE MOD (NEG); GLUCOSE,URINE NEG (NEG); KETONE, URINE NEG (NEG); MUCUS URINE FEW /lpf (OCC); NITRITE,URINE NEG (NEG); PH, URINE 5.5 (5.0-8.5); SQUAMOUS EPITHELIAL CELL URINE 1 /hpf (0-5); URINE COLOR YELLOW (YELLW/STRAW)
[2017-01-27 12:52] LABS: COMMENT (UR) CULT NOT INDICATED; CULTURE IF INDICATED CULT NOT INDICATED
[2017-01-27 13:08] LABS: ALKALINE PHOSPHATASE 62 U/L (45-117); ALT (GPT) 17 U/L (10-53); ANION GAP 7 MEQ/L (5-15); AST (GOT) 20 U/L (15-37); BICARBONATE 28.1 MEQ/L (21.0-32.0); BLOOD UREA NITROGEN 11 MG/DL (7-18); CHLORIDE 105 MEQ/L (98-107); GLOMERULAR FILTRATION RATE 107 ML/MIN (>89); POTASSIUM 4.1 MEQ/L (3.5-5.1); SODIUM (NA) 140 MEQ/L (136-145); TOTAL BILIRUBIN ADULT 0.1 MG/DL (0.2-1.0)
[2017-01-27 13:18] VITALS: BP 96/53; PULSE 75; RESP 18; O2SAT 99
[2017-01-27 13:38] LABS: BASOPHILS 1 % (0-2); EOSINOPHILS 8 % (0-4); POLYS (SEG NEUTROPHILS) 68 % (16-70); WBC DIFF SAMPLE 100
[2017-01-27 13:39] LABS: KERATOCYTES OCC (NORMAL); PLATELET ESTIMATE SMEAR HIGH (NORMAL); PLATELET MORPHOLOGY NORMAL (NORMAL); SCAN/DIFF FINAL DIFF MANUAL; TARGET CELLS 1+ (NORMAL)
[2017-01-27] MEDS ORDERED: IOHEXOL 350 MG/ML 10 ML VIAL (for RAD DIAG) IV ONE (14:11)
--- NOTE | 2017-01-27 14:25 | RADRPT ---
EXAM DATE/TIME: 01/27/2017 14:03 [facility] COMPARISON: MRI PELVIS W & W/O CONTRAST, March 14, 2016, 18:22. CT ABDOMEN & PELVIS W CONTRAST, January 08, 2017, 15: 37. INDICATIONS : Pelvic pain with nausea. Same pain as last visit IV CONTRAST: 91 cc Omnipaque 350 (iohexol) IV ORAL CONTRAST: No oral contrast ingested. RADIATION DOSE: 4.76 CTDIvol (mGy) MEDICAL HISTORY : None SURGICAL HISTORY : None. ENCOUNTER: Initial ACUITY: 3 days PAIN SCALE: 10/10 LOCATION: lower quadrant TECHNIQUE: Volumetric scanning of the abdomen and pelvis was performed. Using automated exposure control and ad justment of the mA and/or kV according to patient size, radiation dose was kept as low as reasonably achievable to obtain optimal diagnostic quality images. FINDINGS: LOWER LUNGS: The visualized lower lungs are clear. LIVER: Homogeneous density without lesion. There is no dilation of the biliary tree. No calcified gallston es. SPLEEN: Normal size without lesion. PANCREAS: Within normal limits. KIDNEYS: Normal in size and shape. There is no mass, stone or hydronephrosis. ADRENAL GLANDS: Within normal limits. VASCULAR: There is no aortic aneurysm. BOWEL/MESENTERY: The stomach, small bowel, and colon demonstrate no acute abnormality. There is no free intraperitone al air or fluid. ABDOMINAL WALL: Within normal limits. RETROPERITONEUM: There is no lymphadenopathy. BLADDER: No wall thickening or mass. REPRODUCTIVE: Uterus is significantly enlarged and heterogeneously enhancing with lobulated contour. The largest ma ss is in the left measures 4.5 cm. Prior MRI demonstrated innumerable uterine masses characteristic o f leiomyomas. There is likely a right corpus luteal cyst. Left ovary is not clearly visualized. INGUINAL: There is no lymphadenopathy or hernia. MUSCULOSKELETAL: Within normal limits for patient age. CONCLUSION: 1. No acute finding is identified within the abdomen or pelvis. 2. However, the uterus is significantly enlarged and contains multiple masses. Prior MRI demonstrated these masses have features typical of leiomyomas. One of the largest lesions measures approximately 4.5 cm. Comparing today's study to the prior MRI indicates no definite interval change. Santos Linares MD on January 27, 2017 at 14:17 Board Certified Radiologist. This report was verified electronically.
[2017-01-27] MEDS ORDERED: MOBI15TA PO (14:40)
[2017-01-27] MEDS ORDERED: TRAM50TA PO (14:40)
== END 2017-01-27 14:54 | disposition home or self-care (01) ==
LOC: NEPD 11:53
DX: D25.9 Leiomyoma of uterus, unspecified (principal); R10.2 Pelvic and perineal pain
CPT/HCPCS: 74177; 80053; 81001; 85007; 85027; 96361; 96374; 96375; 99285; J2270; J2405; J7040; Q9967; 85610; 85730

== ENCOUNTER 2017-05-08 17:48 | Emergency (ER) | payer SELFPAY ==
[~2017-05-08] VITALS: Ht 160 cm; Wt 58.0 kg
[~2017-05-08 17:48] MED LIST changes: -FERR1TAB36 PO; -FERR325T PO; +MOBI15TA PO; -MOTR200T4 PO; +TRAM50TA PO; -ZOFR4TAB PO
[2017-05-08 17:51] VITALS: BP 107/65; PULSE 103; RESP 17; TEMP 99.3; O2SAT 100
--- NOTE | 2017-05-08 17:55 | PD ---
Physical Exam Date Seen by Provider: May 08, 2017 Time Seen by Provider: 17:54 Narrative 41 YOBF C/O N/V SINCE YEST. VS NOTED WAITING FOR BED PLACEMENT Data Data Last Documented VS Vital Signs Date Time Temp Pulse Resp B/P (MAP) Pulse Ox O2 Delivery O2 Flow Rate FiO2 05/08/17 17:51 99.3 103 17 107/65 (79) 100 Room Air MDM Medical Record Reviewed: No Supervised Visit with KEYLA: Yes Yannick Rich May 08, 2017 17:55
--- NOTE | 2017-05-08 19:45 | PD ---
HPI Chief Complaint: GI Complaint Time Seen by Provider: 19:44 Travel History International Travel<30 days: No Contact w/Intl Traveler<30days: No Traveled to known affect area: No History of Present Illness HPI 41-year-old female presents to emergency department for evaluation of nausea and vomiting since yesterday. Subjective fever and chills. Patient reports generalized abdominal pain she has not had a bowel movement. No history of abdominal surgeries. Reports no urinary symptoms. Denies chest tightness. No difficulty breathing. No other symptoms to report. PFSH Past Medical History Anemia: Yes Cancer: No Cardiovascular Problems: No Diminished Hearing: No Endocrine: No Gastrointestinal Disorders: No Immune Disorder: No Implanted Vascular Access Dvce: No Musculoskeletal: No Neurologic: No Psychiatric: No Reproductive: Yes (uterine fibroids) Respiratory: No ?: Not LMP: NOW : 1 Para: 1 Past Surgical History Pacemaker: No Other Surgery: No Social History Alcohol Use: No Tobacco Use: Yes Substance Use: No Allergies-Medications (Allergen,Severity, Reaction): Coded Allergies: penicillin G (Unverified Allergy, Severe, HIVES, 05/08/17) Reported Meds & Prescriptions Reported Meds & Active Scripts Active Review of Systems Except as stated in HPI: all other systems reviewed are Neg Physical Exam Narrative GENERAL: Well-nourished female patient, no acute distress SKIN: Focused skin assessment warm/dry. HEAD: Atraumatic. Normocephalic. EYES: Pupils equal and round. No scleral icterus. No injection or drainage. ENT: No nasal bleeding or discharge. Mucous membranes pink and moist. NECK: Trachea midline. No JVD. CARDIOVASCULAR: Elevated rate and rhythm. No murmur appreciated. RESPIRATORY: No accessory muscle use. Clear to auscultation. Breath sounds equal bilaterally. GASTROINTESTINAL: Abdomen, nondistended. Generalized tenderness to palpation, primarily in the right upper quadrant. No guarding. No rebound tenderness.. Hepatic and splenic margins not palpable. MUSCULOSKELETAL: No obvious deformities. No clubbing. No cyanosis. No edema. NEUROLOGICAL: Awake and alert. No obvious cranial nerve deficits. Motor grossly within normal limits. Normal speech. Data Data Last Documented VS Vital Signs Date Time Temp Pulse Resp B/P (MAP) Pulse Ox O2 Delivery O2 Flow Rate FiO2 05/08/17 23:55 80 16 109/63 (78) 100 05/08/17 22:15 Room Air 9/7/17 17:51 99.3 Orders Orders Urinalysis - C+S If Indicated (05/08/17 19:42) Ed Urine Pregnancytest Poc (05/08/17 19:42) Complete Blood Count With Diff (05/08/17 19:53) Comprehensive Metabolic Panel (05/08/17 19:53) Lipase (05/08/17 19:53) Prothrombin Time / Inr (Pt) (05/08/17 19:53) Act Partial Throm Time (Ptt) (05/08/17 19:53) Ct Abd/Pel W Iv Contrast(Rout) (05/08/17 19:53) Iv Access Insert/Monitor (05/08/17 19:53) Ecg Monitoring (05/08/17 19:53) Oximetry (05/08/17 19:53) Ondansetron Inj (Zofran Inj) (05/08/17 20:00) Sodium Chlor 0.9% 1000 Ml Inj (Ns 1000 M (05/08/17 19:53) Sodium Chloride 0.9% Flush (Ns Flush) (05/08/17 20:00) Electrocardiogram (05/08/17 19:53) Ketorolac Inj (Toradol Inj) (05/08/17 20:00) Vascular Access Team Consult/P PRN (05/08/17 20:24) Vascular Poc Ultrasound (05/08/17 ) Urine Culture (05/08/17 20:45) Ceftriaxone Inj (Rocephin Inj) (05/08/17 21:30) Iohexol 350 Inj (Omnipaque 350 Inj) (05/08/17 21:46) Labs Laboratory Tests Test 05/08/17 20:10 05/08/17 20:45 White Blood Count 8.2 TH/MM3 Red Blood Count 4.49 MIL/MM3 Hemoglobin 7.9 GM/DL Hematocrit 26.0 % Mean Corpuscular Volume 57.9 FL Mean Corpuscular Hemoglobin 17.6 PG Mean Corpuscular Hemoglobin Concent 30.3 % Red Cell Distribution Width 23.5 % Platelet Count 861 TH/MM3 Mean Platelet Volume 8.8 FL CBC Comment AUTO DIFF Differential Total Cells Counted 100 Neutrophils % (Manual) 75 % Lymphocytes % 21 % Monocytes % 4 % Neutrophils # (Manual) 6.2 TH/MM3 Nucleated Red Blood Cells 1 /100 WBC Differential Comment FINAL DIFF MANUAL Platelet Estimate HIGH Platelet Morphology Comment NORMAL Target Cells 2+ Ovalocytes 1+ Keratocytes OCC Blood Urea Nitrogen 15 MG/DL Creatinine 0.71 MG/DL Random Glucose 93 MG/DL Total Protein 9.2 GM/DL Albumin 3.6 GM/DL Calcium Level 9.2 MG/DL Alkaline Phosphatase 79 U/L Aspartate Amino Transf (AST/SGOT) 13 U/L Alanine Aminotransferase (ALT/SGPT) 16 U/L Total Bilirubin 0.2 MG/DL Sodium Level 139 MEQ/L Potassium Level 3.7 MEQ/L Chloride Level 105 MEQ/L Carbon Dioxide Level 25.4 MEQ/L Anion Gap 9 MEQ/L Estimat Glomerular Filtration Rate 109 ML/MIN Lipase 60 U/L Prothrombin Time 10.3 SEC Prothromb Time International Ratio 0.9 RATIO Activated Partial Thromboplast Time 19.8 SEC Urine Color RED Urine Turbidity HAZY Urine pH 5.5 Urine Specific [place] 1.027 Urine Protein 30 mg/dL Urine Glucose (UA) NEG mg/dL Urine Ketones 40 mg/dL Urine Occult Blood LARGE Urine Nitrite NEG Urine Bilirubin NEG Urine Urobilinogen 2.0 MG/DL Urine Leukocyte Esterase SMALL Urine RBC /hpf Urine WBC 27 /hpf Urine Squamous Epithelial Cells 2 /hpf Urine Amorphous Sediment RARE Urine Bacteria FEW /hpf Urine Mucus MOD /lpf Microscopic Urinalysis Comment CULTURE INDICATED MDM Medical Decision Making Medical Screen Exam Complete: Yes Emergency Medical Condition: Yes Medical Record Reviewed: Yes Differential Diagnosis Gastritis versus gastroenteritis versus influenza versus viral syndrome versus cholecystitis versus electrolyte abnormality Narrative Course 41-year-old female presents to emergency department for evaluation. Patient appears without distress. Vital signs are with low-grade temperature and tachycardic heart rate. CBC is with anemia 7.9, patient has history of anemia. CMP is without acute concern. Lipase is 60. Urinalysis will be sent for culture as patient is on her menses. At this time she'll not be started on oral antibiotics. Laboratory Tests Test 05/08/17 20:10 05/08/17 20:45 White Blood Count 8.2 TH/MM3 Red Blood Count 4.49 MIL/MM3 Hemoglobin 7.9 GM/DL Hematocrit 26.0 % Mean Corpuscular Volume 57.9 FL Mean Corpuscular Hemoglobin 17.6 PG Mean Corpuscular Hemoglobin Concent 30.3 % Red Cell Distribution Width 23.5 % Platelet Count 861 TH/MM3 Mean Platelet Volume 8.8 FL CBC Comment AUTO DIFF Differential Total Cells Counted 100 Neutrophils % (Manual) 75 % Lymphocytes % 21 % Monocytes % 4 % Neutrophils # (Manual) 6.2 TH/MM3 Nucleated Red Blood Cells 1 /100 WBC Differential Comment FINAL DIFF MANUAL Platelet Estimate HIGH Platelet Morphology Comment NORMAL Target Cells 2+ Ovalocytes 1+ Keratocytes OCC Blood Urea Nitrogen 15 MG/DL Creatinine 0.71 MG/DL Random Glucose 93 MG/DL Total Protein 9.2 GM/DL Albumin 3.6 GM/DL Calcium Level 9.2 MG/DL Alkaline Phosphatase 79 U/L Aspartate Amino Transf (AST/SGOT) 13 U/L Alanine Aminotransferase (ALT/SGPT) 16 U/L Total Bilirubin 0.2 MG/DL Sodium Level 139 MEQ/L Potassium Level 3.7 MEQ/L Chloride Level 105 MEQ/L Carbon Dioxide Level 25.4 MEQ/L Anion Gap 9 MEQ/L Estimat Glomerular Filtration Rate 109 ML/MIN Lipase 60 U/L Prothrombin Time 10.3 SEC Prothromb Time International Ratio 0.9 RATIO Activated Partial Thromboplast Time 19.8 SEC Urine Color RED Urine Turbidity HAZY Urine pH 5.5 Urine Specific [place] 1.027 Urine Protein 30 mg/dL Urine Glucose (UA) NEG mg/dL Urine Ketones 40 mg/dL Urine Occult Blood LARGE Urine Nitrite NEG Urine Bilirubin NEG Urine Urobilinogen 2.0 MG/DL Urine Leukocyte Esterase SMALL Urine RBC /hpf Urine WBC 27 /hpf Urine Squamous Epithelial Cells 2 /hpf Urine Amorphous Sediment RARE Urine Bacteria FEW /hpf Urine Mucus MOD /lpf Microscopic Urinalysis Comment CULTURE INDICATED Last Impressions Abdomen/Pelvis CT 05/08/171952 Signed Impressions: Service Date/Time: May 21:28 - CONCLUSION: 1. Fibroid uterus with multiple uterine fibroids. 2. Small amount of free fluid in the deep right pelvis. This would be within the range of physiologic for a menstruating female. 3. Otherwise negative. Arnold Alvarado MD Findings of CT are discussed with the patient. Patient will be discharged home to follow-up with her primary care provider. She agrees to return immediately with any acute worsening of symptoms. Diagnosis Primary Impression: Nausea & vomiting Qualified Codes: R11.2 - Nausea with vomiting, unspecified Additional Impressions: Menses regular with excessive bleeding Qualified Codes: N92.0 - Excessive and frequent menstruation with regular cycle Anemia Qualified Codes: D64.9 - Anemia, unspecified Referrals: Primary Care Physician Patient Instructions: Gastritis (ED), General Instructions Additional Instructions: Rest Maintain adequate oral hydration Follow-up with the primary care provider Clear liquid diet, advanced as tolerated Avoid abrasive and acidic foods Return immediately with any acute worsening symptoms Med/Other Pt SpecificInfo: No Meds Exist/No RX given Disposition: 01 DISCHARGE HOME Condition: Stable Radha Storey May 08, 2017 19:45
[2017-05-08] MEDS ORDERED: SODIUM CHLOR 0.9% 1000 ML INJ 1,000 ML IV SCH (19:53)
[2017-05-08] MEDS ORDERED: ONDANSETRON HCL 4 MG/2 ML VIAL IVP ONE (20:00)
[2017-05-08] MEDS ORDERED: SODIUM CHLORIDE 0.9% FLUSH 10 ML FLUSH IV FLUSH PRN (20:00)
[2017-05-08] MEDS ORDERED: KETOROLAC TROMETHAMINE 30 MG/ML (IVP) VIAL IVP ONE (20:00)
[2017-05-08 21:01] LABS: ALT (GPT) 16 U/L (10-53); ANION GAP 9 MEQ/L (5-15); AST (GOT) 13 U/L (15-37); BICARBONATE 25.4 MEQ/L (21.0-32.0); BLOOD UREA NITROGEN 15 MG/DL (7-18); CHLORIDE 105 MEQ/L (98-107); GLOMERULAR FILTRATION RATE 109 ML/MIN (>89); POTASSIUM 3.7 MEQ/L (3.5-5.1); SODIUM (NA) 139 MEQ/L (136-145)
[2017-05-08 21:04] LABS: ALKALINE PHOSPHATASE 79 U/L (45-117); TOTAL BILIRUBIN ADULT 0.2 MG/DL (0.2-1.0)
[2017-05-08 21:06] VITALS: O2SAT 97
[2017-05-08 21:15] LABS: BACTERIA, URINE FEW /hpf; BLOOD, URINE LARGE (NEG); COMMENT (UR) CULTURE INDICATED; CULTURE IF INDICATED CULTURE INDICATED; GLUCOSE,URINE NEG (NEG); KETONE, URINE 40 mg/dL (NEG); MUCUS URINE MOD /lpf (OCC); NITRITE,URINE NEG (NEG); PH, URINE 5.5 (5.0-8.5); SQUAMOUS EPITHELIAL CELL URINE 2 /hpf (0-5)
[2017-05-08 21:16] LABS: URINE COLOR RED (YELLW/STRAW)
[2017-05-08 21:30] LABS: MEAN CELL VOLUME 57.9 FL (80.0-100.0); MEAN CORPUSCULAR HEMOGLOBIN 17.6 PG (27.0-34.0); MEAN CORPUSCULAR HGB CONC 30.3 % (32.0-36.0); PLATELET COUNT 861 TH/MM3 (150-450); RED BLOOD COUNT 4.49 MIL/MM3 (4.00-5.30); RED CELL DISTRIBUTION WIDTH 23.5 % (11.6-17.2); WHITE BLOOD COUNT 8.2 TH/MM3 (4.0-11.0)
[2017-05-08] MEDS ORDERED: cefTRIAXone INJ 1,000 MG in SODIUM CHLORIDE 0.9% INJ 100 ML IV ONE (21:30)
[2017-05-08 21:36] LABS: APTT (PATIENT) 19.8 SEC (24.3-30.1); INTERNATIONAL NORMALIZED RATIO 0.9 RATIO; PROTHROMBIN TIME - PATIENT 10.3 SEC (9.8-11.6)
[2017-05-08 21:45] LABS: HEMO FLAGS AUTO DIFF
[2017-05-08] MEDS ORDERED: IOHEXOL 350 MG/ML 10 ML VIAL (for RAD DIAG) IVCONTRAST ONE (21:46)
--- NOTE | 2017-05-08 21:57 | RADRPT ---
EXAM DATE/TIME: 05/08/2017 21:28 [facility] COMPARISON: CT ABDOMEN & PELVIS W CONTRAST, January 27, 2017, 14:03. INDICATIONS : Diffuse abdominal pain with nausea and vomiting. IV CONTRAST: 80 cc Omnipaque 350 (iohexol) IV ORAL CONTRAST: No oral contrast ingested. RADIATION DOSE: 4.56 CTDIvol (mGy) MEDICAL HISTORY : None SURGICAL HISTORY : None. ENCOUNTER: Initial ACUITY: 1 day PAIN SCALE: 9/10 LOCATION: All quadrants. TECHNIQUE: Volumetric scanning of the abdomen and pelvis was performed. Using automated exposure control and ad justment of the mA and/or kV according to patient size, radiation dose was kept as low as reasonably achievable to obtain optimal diagnostic quality images. DICOM format image data is available electro nically for review and comparison. FINDINGS: LOWER LUNGS: The visualized lower lungs are clear. LIVER: Homogeneous density without lesion. There is no dilation of the biliary tree. No calcified gallston es. SPLEEN: Normal size without lesion. PANCREAS: Within normal limits. KIDNEYS: Normal in size and shape. There is no mass, stone or hydronephrosis. ADRENAL GLANDS: Within normal limits. VASCULAR: There is no aortic aneurysm. BOWEL/MESENTERY: The stomach, small bowel, and colon demonstrate no acute abnormality. There is no free intraperitone al air or fluid. ABDOMINAL WALL: Within normal limits. RETROPERITONEUM: There is no lymphadenopathy. BLADDER: No wall thickening or mass. REPRODUCTIVE: Markedly enlarged uterus with multiple myometrial mass lesions measuring upwards of 4.3 cm in diamete r characteristic of a fibroid uterus. Small amount of free fluid in the deep right pelvis. INGUINAL: There is no lymphadenopathy or hernia. MUSCULOSKELETAL: Within normal limits for patient age. CONCLUSION: 1. Fibroid uterus with multiple uterine fibroids. 2. Small amount of free fluid in the deep right pelvis. This would be within the range of physiologic for a menstruating female. 3. Otherwise negative. Arnold Alvarado MD on May 08, 2017 at 21:53 Board Certified Radiologist. This report was verified electronically.
[2017-05-08 22:09] LABS: CORRECTED NUCLEATED RBC 1 /100 WBC (0-0); NEUTROPHIL # MANUAL DIFF 6.2 TH/MM3 (1.8-7.7); POLYS (SEG NEUTROPHILS) 75 % (16-70); WBC DIFF SAMPLE 100
[2017-05-08 22:11] LABS: KERATOCYTES OCC (NORMAL); OVALOCYTES 1+ (NORMAL); TARGET CELLS 2+ (NORMAL)
[2017-05-08 22:12] LABS: PLATELET ESTIMATE SMEAR HIGH (NORMAL); PLATELET MORPHOLOGY NORMAL (NORMAL); SCAN/DIFF FINAL DIFF MANUAL
[2017-05-08 22:15] VITALS: BP 110/70; PULSE 80; RESP 16; O2SAT 98
[2017-05-08 23:46] VITALS: RESP 16
[2017-05-08 23:55] VITALS: BP 109/63
--- NOTE | 2017-05-09 11:40 | EKG ---
Date Performed: 05/08/2017 Time Performed: 20:39:16 PTAGE: 41 years EKG: Sinus rhythm INCOMPLETE RIGHT BUNDLE BRANCH BLOCK BORDERLINE ECG PREVIOUS TRACING : 03/16/2016 13.18 Compared to previous tracing, QRS voltage has increased dif fusely. DOCTOR: Eliazar Santamaria Interpretating Date/Time 05/09/2017 11:38:17
== END 2017-05-09 00:25 | disposition home or self-care (01) ==
LOC: NEPD 17:48
DX: R11.2 Nausea with vomiting, unspecified (principal); N92.0 Excessive and frequent menstruation with regular cycle; D64.9 Anemia, unspecified; D25.9 Leiomyoma of uterus, unspecified; R10.84 Generalized abdominal pain; R82.71 Bacteriuria; R00.0 Tachycardia, unspecified; Z72.0 Tobacco use
CPT/HCPCS: 74177; 76937; 80053; 81001; 83690; 84703; 85007; 85027; 85610; 85730; 87086; 93005; 96361; 96365; 96375; 99285; J0696; J1885; J2405; J7030; Q9967

== ENCOUNTER 2017-11-07 17:08 | Emergency (ER) | payer SELFPAY ==
[~2017-11-07] VITALS: Ht 167.6 cm; Wt 60.0 kg
[2017-11-07 17:22] VITALS: BP 115/72; PULSE 78; RESP 18; TEMP 100.2; O2SAT 98
[2017-11-07 18:11] LABS: ALBUMIN 3.5 GM/DL (3.4-5.0); ALT (GPT) 14 U/L (10-53); AST (GOT) 10 U/L (15-37); BICARBONATE 26.7 MEQ/L (21.0-32.0); BLOOD UREA NITROGEN 13 MG/DL (7-18); CHLORIDE 105 MEQ/L (98-107); CREATININE 0.75 MG/DL (0.50-1.00); GLOMERULAR FILTRATION RATE 102 ML/MIN (>89); GLUCOSE,RANDOM 104 MG/DL (74-106); SODIUM (NA) 140 MEQ/L (136-145)
[2017-11-07 18:13] LABS: ALKALINE PHOSPHATASE 70 U/L (45-117); TOTAL BILIRUBIN ADULT 0.2 MG/DL (0.2-1.0); TOTAL PROTEIN 8.5 GM/DL (6.4-8.2)
[2017-11-07 18:15] LABS: HEMATOCRIT 22.9 % (35.0-46.0); HEMOGLOBIN 7.1 GM/DL (11.6-15.3); INTERNATIONAL NORMALIZED RATIO 1.1 RATIO; MEAN CELL VOLUME 54.8 FL (80.0-100.0); MEAN CORPUSCULAR HEMOGLOBIN 16.9 PG (27.0-34.0); MEAN CORPUSCULAR HGB CONC 30.9 % (32.0-36.0); MEAN PLATELET VOLUME 8.3 FL (7.0-11.0); PLATELET COUNT 729 TH/MM3 (150-450); PROTHROMBIN TIME - PATIENT 10.7 SEC (9.8-11.6); RED BLOOD COUNT 4.17 MIL/MM3 (4.00-5.30); RED CELL DISTRIBUTION WIDTH 23.3 % (11.6-17.2); WHITE BLOOD COUNT 6.9 TH/MM3 (4.0-11.0)
[2017-11-07 20:11] LABS: CORRECTED NUCLEATED RBC 1 /100 WBC (0-0); LYMPHOCYTES 15 % (9-44); MONOCYTES 9 % (0-8); NEUTROPHIL # MANUAL DIFF 5.2 TH/MM3 (1.8-7.7); NUCLEATED RED BLOOD CELL 1 (0-0); POLYS (SEG NEUTROPHILS) 76 % (16-70)
[2017-11-07 20:13] LABS: KERATOCYTES OCC (NORMAL); OVALOCYTES 1+ (NORMAL); TARGET CELLS 2+ (NORMAL)
== END 2017-11-07 21:56 | disposition left against medical advice (07) ==
LOC: NED 17:08
DX: R11.10 Vomiting, unspecified (principal)
CPT/HCPCS: 80053; 85007; 85027; 85610; 85730; 86850; 86900; 86901; 99281

== ENCOUNTER 2017-11-08 11:19 | Observation (INO) | payer SELFPAY ==
[~2017-11-08] VITALS: Ht 160 cm; Wt 60.0 kg
[2017-11-08 11:28] VITALS: BP 101/55; PULSE 81; RESP 16; TEMP 98.8; O2SAT 100
--- NOTE | 2017-11-08 15:55 | PD ---
HPI Chief Complaint: GI Complaint Time Seen by Provider: 15:49 Travel History International Travel<30 days: No Contact w/Intl Traveler<30days: No Traveled to known affect area: No History of Present Illness HPI Patient comes in complaining of generalized weakness since with some associated nausea and intermittent vaginal bleeding has been ongoing since October 28. Allergic to penicillin Past medical history significant for uterine fibroids, UTI, transfusions and anemia. PFSH Past Medical History Anemia: Yes Cancer: No Cardiovascular Problems: No Diminished Hearing: No Endocrine: No Gastrointestinal Disorders: No Genitourinary: Yes (UTI's) Immune Disorder: No Implanted Vascular Access Dvce: No Musculoskeletal: No Neurologic: No Psychiatric: No Reproductive: Yes (uterine fibroids) Respiratory: No Influenza Vaccination: No ?: Not : 1 Para: 1 Past Surgical History Surgical History: No Previous Surgery Pacemaker: No Other Surgery: No Social History Alcohol Use: No Tobacco Use: Yes Substance Use: No Allergies-Medications (Allergen,Severity, Reaction): Coded Allergies: penicillin G (Unverified Allergy, Severe, HIVES, 11/08/17) Reported Meds & Prescriptions Reported Meds & Active Scripts Active No Active Prescriptions or Reported Medications Review of Systems General / Constitutional: Positive: Other (Generalized weakness) Eyes: No: Visual changes HENT: No: Headaches Cardiovascular: No: Chest Pain or Discomfort Respiratory: No: Shortness of Breath Gastrointestinal: No: Abdominal Pain Genitourinary: No: Dysuria Musculoskeletal: No: Pain Skin: No Rash Neurologic: No: Weakness Psychiatric: No: Depression Endocrine: No: Polydipsia Hematologic/Lymphatic: No: Easy Bruising Physical Exam Narrative GENERAL: SKIN: Warm and dry. HEAD: Atraumatic. Normocephalic. EYES: Pupils equal and round. No scleral icterus. No injection or drainage. Pale conjunctiva ENT: No nasal bleeding or discharge. Mucous membranes pink and moist. NECK: Trachea midline. No JVD. CARDIOVASCULAR: Regular rate and rhythm. RESPIRATORY: No accessory muscle use. Clear to auscultation. Breath sounds equal bilaterally. GASTROINTESTINAL: Abdomen soft, non-tender, nondistended. MUSCULOSKELETAL: Extremities without clubbing, cyanosis, or edema. No obvious deformities. NEUROLOGICAL: Awake and alert. No obvious cranial nerve deficits. Motor grossly within normal limits. Five out of 5 muscle strength in the arms and legs. Normal speech. PSYCHIATRIC: Appropriate mood and affect; insight and judgment normal. Data Data Last Documented VS Vital Signs Date Time Temp Pulse Resp B/P (MAP) Pulse Ox O2 Delivery O2 Flow Rate FiO2 11/08/17 16:37 100 Room Air 11/08/17 11:28 98.8 81 16 101/55 (70) Orders Orders Ct Abd/Pel W Iv Contrast(Rout) (11/08/17 16:12) Iv Access Insert/Monitor (11/08/17 16:12) Ecg Monitoring (11/08/17 16:12) Oximetry (11/08/17 16:12) NPO (11/08/17 16:12) Morphine Inj (Morphine Inj) (11/08/17 16:15) Ondansetron Inj (Zofran Inj) (11/08/17 16:15) Sodium Chlor 0.9% 1000 Ml Inj (Ns 1000 M (11/08/17 16:12) Sodium Chloride 0.9% Flush (Ns Flush) (11/08/17 16:15) Oral Contrast - Adult (11/08/17 16:31) Diatrizoate Liq ( Gastroview Liq) (11/08/17 16:39) Red Blood Cells (Rbc) (11/08/17 18:35) Blood Product Administration (11/08/17 18:35) Sodium Chlor 0.9% 250 Ml Inj (Ns 250 Ml (11/08/17 18:45) MDM Medical Decision Making Medical Screen Exam Complete: Yes Emergency Medical Condition: Yes Medical Record Reviewed: Yes Differential Diagnosis Generalized weakness due to electrolyte abnormalities versus anemia versus dehydration versus infection Narrative Course Coagulation profile is within normal limits on November 07 studies CBC on November 07, 2017 shows anemia hemoglobin 7.1 over hematocrit of 22.9, MCV is 55 which is microcytic, platelet count is 729,000, no leukocytosis, no neutrophilia. November 07, 2017 chemistry shows normal electrolytes, normal kidney function. Patient will be receiving a transfusion of packed red blood cells. Patient will be signed out to oncoming physician pending CT scan results Diagnosis Primary Impression: Symptomatic anemia secondary to dysfunctional uterine bleeding Additional Impression: Symptomatic fibroid Scripts No Active Prescriptions or Reported Meds Thomas Prescott MD Nov 08, 2017 15:55
[2017-11-08] MEDS ORDERED: SODIUM CHLOR 0.9% 1000 ML INJ 1,000 ML IV SCH (16:12)
[2017-11-08] MEDS ORDERED: SODIUM CHLORIDE 0.9% FLUSH 10 ML FLUSH IV FLUSH PRN ×2 (16:15→21:45)
[2017-11-08] MEDS ORDERED: ONDANSETRON HCL 4 MG/2 ML VIAL IVP ONE (16:15)
[2017-11-08] MEDS ORDERED: MORPHINE SULFATE 4 MG/ML INJ IV PUSH ONE (16:15)
[2017-11-08 16:37] VITALS: O2SAT 100
[2017-11-08] MEDS ORDERED: DIATRIZOATE MEGLUM/DIATRIZOATE SOD 9 ML CUP ONE (16:39)
[2017-11-08] MEDS ORDERED: SODIUM CHLOR 0.9% 250 ML INJ 250 ML IV ONE (18:45)
[2017-11-08] MEDS ORDERED: IOHEXOL 350 MG/ML 10 ML VIAL (for RAD DIAG) IVCONTRAST ONE (20:02)
--- NOTE | 2017-11-08 20:14 | PD ---
Physical Exam Narrative Received sign out from previous team to follow up CT a/p and admit for symptomatic anemia. 42yo F with long standing uterine fibroid here with generalized weakness. H/H yesterday was 7.1/22.9. The previous provider ordered 2 units of PRBC and pt to be admitted to medicine for observation for symptomatic anemia. I repeated labs today prior to transfusion and H/H was 6.8/23.6. Lipase normal. CMP unremarkable. Discussed with Dr. Deluca and accepted to her service. Data Data Last Documented VS Vital Signs Date Time Temp Pulse Resp B/P (MAP) Pulse Ox O2 Delivery O2 Flow Rate FiO2 11/08/17 20:53 62 18 121/61 98 11/08/17 20:24 98.9 11/08/17 16:37 Room Air Orders Orders Ct Abd/Pel W Iv Contrast(Rout) (11/08/17 16:12) Iv Access Insert/Monitor (11/08/17 16:12) Ecg Monitoring (11/08/17 16:12) Oximetry (11/08/17 16:12) NPO (11/08/17 16:12) Morphine Inj (Morphine Inj) (11/08/17 16:15) Ondansetron Inj (Zofran Inj) (11/08/17 16:15) Sodium Chlor 0.9% 1000 Ml Inj (Ns 1000 M (11/08/17 16:12) Sodium Chloride 0.9% Flush (Ns Flush) (11/08/17 16:15) Oral Contrast - Adult (11/08/17 16:31) Diatrizoate Liq ( Gastroview Liq) (11/08/17 16:39) Red Blood Cells (Rbc) (11/08/17 18:35) Blood Product Administration (11/08/17 18:35) Sodium Chlor 0.9% 250 Ml Inj (Ns 250 Ml (11/08/17 18:45) Type And Screen (11/08/17 18:35) Iohexol 350 Inj (Omnipaque 350 Inj) (11/08/17 20:02) Complete Blood Count With Diff (11/08/17 20:18) Comprehensive Metabolic Panel (11/08/17 20:18) Lipase (11/08/17 20:18) Ondansetron Inj (Zofran Inj) (11/08/17 21:30) Morphine Inj (Morphine Inj) (11/08/17 21:30) Admit Order (Ed Use Only) (11/08/17 21:38) Labs Laboratory Tests Test 11/08/17 20:26 White Blood Count 7.7 TH/MM3 Red Blood Count 4.27 MIL/MM3 Hemoglobin 6.8 GM/DL Hematocrit 23.6 % Mean Corpuscular Volume 55.3 FL Mean Corpuscular Hemoglobin 16.0 PG Mean Corpuscular Hemoglobin Concent 28.9 % Red Cell Distribution Width 23.7 % Platelet Count 702 TH/MM3 Mean Platelet Volume 8.4 FL CBC Comment AUTO DIFF Differential Total Cells Counted 100 Neutrophils % (Manual) 63 % Lymphocytes % 26 % Monocytes % 11 % Neutrophils # (Manual) 4.9 TH/MM3 Differential Comment FINAL DIFF MANUAL Platelet Estimate HIGH Platelet Morphology Comment NORMAL Target Cells 2+ Ovalocytes 1+ Blood Urea Nitrogen 16 MG/DL Creatinine 0.74 MG/DL Random Glucose 88 MG/DL Total Protein 7.9 GM/DL Albumin 3.4 GM/DL Calcium Level 8.5 MG/DL Alkaline Phosphatase 64 U/L Aspartate Amino Transf (AST/SGOT) 9 U/L Alanine Aminotransferase (ALT/SGPT) 14 U/L Total Bilirubin 0.2 MG/DL Sodium Level 136 MEQ/L Potassium Level 3.9 MEQ/L Chloride Level 103 MEQ/L Carbon Dioxide Level 25.3 MEQ/L Anion Gap 8 MEQ/L Estimat Glomerular Filtration Rate 104 ML/MIN Lipase 102 U/L MDM Supervised Visit with KEYLA: No Diagnosis Primary Impression: Symptomatic anemia secondary to dysfunctional uterine bleeding Additional Impression: Symptomatic fibroid Scripts No Active Prescriptions or Reported Meds Neha Ortega DO Nov 08, 2017 20:14
[2017-11-08 20:24] VITALS: BP 120/56; PULSE 78; RESP 18; TEMP 98.9; O2SAT 100
[2017-11-08 20:53] VITALS: BP 121/61; PULSE 62; RESP 18; O2SAT 98
--- NOTE | 2017-11-08 21:02 | RADRPT ---
EXAM DATE/TIME: 11/08/2017 19:58 [facility] COMPARISON: No previous studies available for comparison. INDICATIONS : Abdominal pain. IV CONTRAST: 70 cc Omnipaque 350 (iohexol) IV ORAL CONTRAST: No oral contrast ingested. RADIATION DOSE: 6.97 CTDIvol (mGy) MEDICAL HISTORY : uterine fibroids SURGICAL HISTORY : None. ENCOUNTER: Initial ACUITY: 1 day PAIN SCALE: 6/10 LOCATION: abdomen TECHNIQUE: Volumetric scanning of the abdomen and pelvis was performed. Using automated exposure control and ad justment of the mA and/or kV according to patient size, radiation dose was kept as low as reasonably achievable to obtain optimal diagnostic quality images. DICOM format image data is available electro nically for review and comparison. FINDINGS: Lung bases are clear. No acute findings in the liver spleen, adrenals, kidneys or pancreas. No calcified gallstones are rikki e ductal dilatation. No free fluid or free air. No bowel obstruction. Numerous fibroids in the uterus with uterine enlarge ment, similar in appearance to May 2017. CONCLUSION: 1. Multi-fibroid uterus with small amount of free fluid in the pelvis. Findings are similar to Septem oleksandr 2017. No acute findings within the abdomen or pelvis. Yannick Cortes MD on November 08, 2017 at 20:57 Board Certified Radiologist. This report was verified electronically.
[2017-11-08 21:16] LABS: HEMATOCRIT 23.6 % (35.0-46.0); MEAN CELL VOLUME 55.3 FL (80.0-100.0); MEAN PLATELET VOLUME 8.4 FL (7.0-11.0); PLATELET COUNT 702 TH/MM3 (150-450); RED BLOOD COUNT 4.27 MIL/MM3 (4.00-5.30); RED CELL DISTRIBUTION WIDTH 23.7 % (11.6-17.2); WHITE BLOOD COUNT 7.7 TH/MM3 (4.0-11.0)
[2017-11-08 21:21] LABS: MEAN CORPUSCULAR HGB CONC 28.9 % (32.0-36.0)
[2017-11-08 21:23] LABS: HEMOGLOBIN 6.8 GM/DL (11.6-15.3)
[2017-11-08 21:24] LABS: ALBUMIN 3.4 GM/DL (3.4-5.0); AST (GOT) 9 U/L (15-37); BICARBONATE 25.3 MEQ/L (21.0-32.0); BLOOD UREA NITROGEN 16 MG/DL (7-18); CALCIUM 8.5 MG/DL (8.5-10.1); CHLORIDE 103 MEQ/L (98-107); CREATININE 0.74 MG/DL (0.50-1.00); GLOMERULAR FILTRATION RATE 104 ML/MIN (>89); GLUCOSE,RANDOM 88 MG/DL (74-106); SODIUM (NA) 136 MEQ/L (136-145)
[2017-11-08 21:25] LABS: ALT (GPT) 14 U/L (10-53)
[2017-11-08 21:27] LABS: ALKALINE PHOSPHATASE 64 U/L (45-117); TOTAL BILIRUBIN ADULT 0.2 MG/DL (0.2-1.0); TOTAL PROTEIN 7.9 GM/DL (6.4-8.2)
[2017-11-08] MEDS ORDERED: MORPHINE SULFATE 2 MG/ML INJ IV PUSH ONE (21:30)
[2017-11-08] MEDS ORDERED: ONDANSETRON HCL 4 MG/2 ML VIAL IV PUSH ONE (21:30)
--- NOTE | 2017-11-08 21:42 | HHI.HP ---
HPI Service [facility] Primary Care Physician Unknown Admission Diagnosis Symptomatic anemia, abdominal pain Diagnoses: (1) Anemia Diagnosis: Principal (2) Intractable pain Diagnosis: Principal (3) Uterine fibroid Diagnosis: Principal Travel History International Travel<30 Days: No Contact w/Intl Traveler <30 Da: No Traveled to Known Affected Are: No History of Present Illness This is a 42-year-old female with a PMH of Uterine Fibroids, Iron Deficiency Anemia requiring transfusions and Tobacco Abuse who presented to the ER with complaints of abdominal pain, nausea, vomiting and weakness for approx 1wk. States pain is generalized, intermittent, 8/10, associated w/ nausea/vomiting. Denies fever or chills. On arrival, BP 101/55, HR 81, O2 sat 100% on RA, Afebrile. Hemoglobin 6.8, previously 7.1 on 11/07/17, 7.9 on 05/08/17. H/o similar symptoms in the past for vaginal bleeding/anemia requiring transfusion due to uterine fibroids. Was told to follow up w/ [facility] for eval however states she can't afford it. 1u pRBC ordered in ER, pending transfusion. Has required multiple doses of analgesics and antiemetics in ER. CT Abd/Pelvis with multi- fibroid uterus and small amount of free fluid in pelvis, findings similar to May 2017, no acute findings. Review of Systems Except as stated in HPI: all other systems reviewed are Neg ROS: 14 point review of systems otherwise negative. Past Family Social History Past Medical History PMH: Uterine Fibroids, Iron Deficiency Anemia requiring transfusions and Tobacco Abuse Past Surgical History PAST SURGICAL HISTORY: None Allergies: Coded Allergies: penicillin G (Unverified Allergy, Severe, HIVES, 11/08/17) Family History PAST FAMILY HISTORY: Reviewed. No h/o DM or CAD Social History PAST SOCIAL HISTORY: Negative for alcohol or drugs. Positive for tobacco. Physical Exam Vital Signs Vital Signs Date Time Temp Pulse Resp B/P (MAP) Pulse Ox O2 Delivery O2 Flow Rate FiO2 11/08/17 20:53 62 18 121/61 98 11/08/17 20:24 98.9 78 18 120/56 100 11/08/17 16:37 100 Room Air 11/08/17 11:28 98.8 81 16 101/55 70) 100 Physical Exam PE: GENERAL: Middle-aged black female in mild distress due to pain. HEENT: PERRLA, EOMI. No scleral icterus or conjunctival pallor. No lid lag or facial droop. CARDIOVASCULAR: Regular rate and rhythm. No obvious murmurs to auscultation. No chest tenderness to palpation. RESPIRATORY: No obvious rhonchi or wheezing. Clear to auscultation. Breath sounds equal bilaterally. GASTROINTESTINAL: Abdomen soft, generalized tenderness to palpation, nondistended. BS normal. MUSCULOSKELETAL: Extremities without clubbing, cyanosis, or edema. No obvious deformities. NEUROLOGICAL: Awake, alert and oriented x4. No focal neurologic deficits. Moving both upper and lower extremities spontaneously. Laboratory Laboratory Tests Test 11/08/17 20:26 White Blood Count 7.7 Red Blood Count 4.27 Hemoglobin 6.8 Hematocrit 23.6 Mean Corpuscular Volume 55.3 Mean Corpuscular Hemoglobin 16.0 Mean Corpuscular Hemoglobin Concent 28.9 Red Cell Distribution Width 23.7 Platelet Count 702 Mean Platelet Volume 8.4 CBC Comment AUTO DIFF Blood Urea Nitrogen 16 Creatinine 0.74 Random Glucose 88 Total Protein 7.9 Albumin 3.4 Calcium Level 8.5 Alkaline Phosphatase 64 Aspartate Amino Transf (AST/SGOT) 9 Alanine Aminotransferase (ALT/SGPT) 14 Total Bilirubin 0.2 Sodium Level 136 Potassium Level 3.9 Chloride Level 103 Carbon Dioxide Level 25.3 Anion Gap 8 Estimat Glomerular Filtration Rate 104 Lipase 102 Result Diagram: 11/08/17202511/08/172025 Caprini VTE Risk Assessment Caprini VTE Risk Assessment: No/Low Risk (score <= 1) VTE Pharm Contraindication: Active bleeding Caprini Risk Assessment Model Point Value = 1 Point Value = 2 Point Value = 3 Point Value = 5 Age 41-60 Minor surgery BMI > 25 kg/m2 Swollen legs Varicose veins or History of unexplained or recurrent spontaneous Oral contraceptives or hormone replacement Sepsis (< 1 month) Serious lung disease, including pneumonia (< 1 month) Abnormal pulmonary function Acute myocardial infarction Congestive heart failure (< 1 month) History of inflammatory bowel disease Medical patient at bed rest Age 61-74 Arthroscopic surgery Major open surgery (> 45 min) Laparoscopic surgery (> 45 min) Malignancy Confined to bed (> 72 hours) Immobilizing plaster cast Central venous access Age >= 75 History of VTE Family history of VTE Factor V Leiden Prothrombin [id number] Lupus anticoagulant Anticardiolipin antibodies Elevated serum homocysteine Heparin-induced thrombocytopenia Other congenital or acquired thrombophilia Stroke (< 1 month) Elective arthroplasty Hip, pelvis, or leg fracture Acute spinal cord injury (< 1 month) Prophylaxis Regimen Total Risk Factor Score Risk Level Prophylaxis Regimen 0-1 Low Early ambulation 2 Moderate Order ONE of the following: *Sequential Compression Device (SCD) *Heparin 5000 units SQ BID 3-4 Higher Order ONE of the following medications: *Heparin 5000 units SQ TID *Enoxaparin/Lovenox 40 mg SQ daily (WT < 150 kg, CrCl > 30 mL/min) *Enoxaparin/Lovenox 30 mg SQ daily (WT < 150 kg, CrCl > 10-29 mL/min) *Enoxaparin/Lovenox 30 mg SQ BID (WT < 150 kg, CrCl > 30 mL/min) AND/OR *Sequential Compression Device (SCD) 5 or more Highest Order ONE of the following medications: *Heparin 5000 units SQ TID (Preferred with Epidurals) *Enoxaparin/Lovenox 40 mg SQ daily (WT < 150 kg, CrCl > 30 mL/min) *Enoxaparin/Lovenox 30 mg SQ daily (WT < 150 kg, CrCl > 10-29 mL/min) *Enoxaparin/Lovenox 30 mg SQ BID (WT < 150 kg, CrCl > 30 mL/min) AND *Sequential Compression Device (SCD) Assessment and Plan Problem List: (1) Anemia ICD Code: D64.9 - Anemia, unspecified (2) Uterine fibroid ICD Code: D25.9 - Leiomyoma of uterus, unspecified Status: Chronic (3) Intractable pain ICD Code: R52 - Pain, unspecified Assessment and Plan A/P: 1. Anemia: Acute on Chronic. Iron Deficiency Anemia from vaginal bleeding/ uterine fibroids. Hgb 6.8, previously 7.1 on 11/07/17, 7.9 on 05/08/17. 1u pRBC ordered in ER, pending transfusion. Will check Hgb/Hct after transfusion. Folic Acid. 2. Uterine Fibroids: Chronic. CT Abd/Pelvis w/ multi-fibroid uterus similar to previous imaging from May 2017, images reviewed by me. Previously referred to [facility], however has not followed-up, recommended outpatient follow up w/ [facility] for evaluation/intervention. 3. Intractable Pain: secondary to above, s/p multiple doses of analgesics/ antiemetics in ER, will continue w/ medications as needed. 4. DVT Prophylaxis: SCD/teds. 5. Social work for DC planning as needed. 6. Case discussed at length with ER physician, labs/records/imaging reviewed by me. Kadi Deluca MD Nov 08, 2017 21:41
[2017-11-08] MEDS ORDERED: BISACODYL 10 MG SUPP RECTAL PRN (21:45)
[2017-11-08] MEDS ORDERED: LACTULOSE SYRUP 20 GM/30 ML CUP PO PRN (21:45)
[2017-11-08] MEDS ORDERED: MAGNESIUM HYDROXIDE SUSP 30 ML CUP PO PRN (21:45)
[2017-11-08] MEDS ORDERED: SENNOSIDES 8.6 MG TAB PO PRN (21:45)
[2017-11-08] MEDS ORDERED: MORPHINE SULFATE 2 MG/ML INJ IV PUSH PRN (21:45)
[2017-11-08] MEDS ORDERED: ACETAMINOPHEN 325 MG TAB PO PRN (21:45)
[2017-11-08 21:50] VITALS: BP 122/66; PULSE 59; RESP 18; O2SAT 100
[2017-11-08 22:13] VITALS: BP 125/73; PULSE 57; RESP 18; TEMP 98.8; O2SAT 100
[2017-11-08 22:19] LABS: LYMPHOCYTES 26 % (9-44); MONOCYTES 11 % (0-8); NEUTROPHIL # MANUAL DIFF 4.9 TH/MM3 (1.8-7.7); POLYS (SEG NEUTROPHILS) 63 % (16-70)
[2017-11-08 22:20] LABS: OVALOCYTES 1+ (NORMAL); TARGET CELLS 2+ (NORMAL)
[2017-11-08] MEDS: SODIUM CHLOR 0.9% 1000 ML INJ 1,000 ML IV SCH (22:24)
[2017-11-09 01:06] VITALS: BP 107/64; PULSE 51; RESP 16; TEMP 98.1; O2SAT 97
[2017-11-09 05:01] VITALS: BP 118/61; PULSE 61; RESP 16; TEMP 98.8; O2SAT 96
[2017-11-09] MEDS: ACETAMINOPHEN/HYDROcodone 325 MG/5 MG TAB PO PRN ×3 (05:19→18:40)
[2017-11-09] MEDS: ONDANSETRON HCL 4 MG/2 ML VIAL IVP PRN ×3 (05:19→17:35)
[2017-11-09 06:49] LABS: AUTOMATED NEUTROPHIL # 4.8 TH/MM3 (1.8-7.7); BASOPHIL # 0.1 TH/MM3 (0-0.2); BASOPHIL % 1.2 % (0.0-2.0); EOSINOPHIL # 0.1 TH/MM3 (0-0.4); EOSINOPHIL % 0.7 % (0.0-4.0); HEMATOCRIT 24.9 % (35.0-46.0); HEMOGLOBIN 7.7 GM/DL (11.6-15.3); LYMPH % 23.5 % (9.0-44.0); LYMPHOCYTE # 1.7 TH/MM3 (1.0-4.8); MEAN CELL VOLUME 60.3 FL (80.0-100.0); MEAN CORPUSCULAR HEMOGLOBIN 18.7 PG (27.0-34.0); MEAN PLATELET VOLUME 8.5 FL (7.0-11.0); MONO % 8.1 % (0.0-8.0); MONOCYTE # 0.6 TH/MM3 (0-0.9); NEUT % 66.5 % (16.0-70.0); PLATELET COUNT 576 TH/MM3 (150-450); RED BLOOD COUNT 4.12 MIL/MM3 (4.00-5.30); RED CELL DISTRIBUTION WIDTH 29.8 % (11.6-17.2); WHITE BLOOD COUNT 7.2 TH/MM3 (4.0-11.0)
[2017-11-09 07:06] LABS: ALBUMIN 2.9 GM/DL (3.4-5.0); ALT (GPT) 13 U/L (10-53); AST (GOT) 9 U/L (15-37); BLOOD UREA NITROGEN 15 MG/DL (7-18); CALCIUM 7.9 MG/DL (8.5-10.1); CHLORIDE 108 MEQ/L (98-107); CREATININE 0.66 MG/DL (0.50-1.00); GLOMERULAR FILTRATION RATE 118 ML/MIN (>89); GLUCOSE,RANDOM 83 MG/DL (74-106); SODIUM (NA) 140 MEQ/L (136-145)
[2017-11-09 07:07] LABS: ALKALINE PHOSPHATASE 55 U/L (45-117); TOTAL BILIRUBIN ADULT 0.4 MG/DL (0.2-1.0); TOTAL PROTEIN 6.8 GM/DL (6.4-8.2)
[2017-11-09] MEDS: SODIUM CHLOR 0.9% 1000 ML INJ 1,000 ML IV SCH ×2 (07:18→18:04)
[2017-11-09 07:39] VITALS: BP 111/60; PULSE 56; RESP 20; TEMP 98.6; O2SAT 100
[2017-11-09] MEDS ORDERED: FERR325T18 PO (08:19)
--- NOTE | 2017-11-09 08:19 | HHI.DCPOC ---
Discharge Care Plan Diagnosis: (1) Uterine fibroid (2) Anemia Goals to Promote Your Health * To prevent worsening of your condition and complications * To maintain your health at the optimal level Directions to Meet Your Goals Take your medications as prescribed Follow your dietary instruction Follow activity as directed Keep your appointments as scheduled Take your immunizations and boosters as scheduled If your symptoms worsen call your PCP, if no PCP go to Urgent Care Center or Emergency Room Smoking is Dangerous to Your Health. Avoid second hand smoke Call the 24-hour hour crisis hotline for domestic abuse at Zabrina Dominique PA-C Nov 09, 2017 08:19
[2017-11-09 08:38] LABS: OVALOCYTES 1+ (NORMAL); TARGET CELLS 2+ (NORMAL)
[2017-11-09 08:40] LABS: KERATOCYTES OCC (NORMAL)
[2017-11-09] MEDS: FOLIC ACID 1 MG TAB PO SCH (09:16)
[2017-11-09] MEDS: SODIUM CHLORIDE 0.9% FLUSH 10 ML FLUSH IV FLUSH SCH ×2 (09:16→21:00)
[2017-11-09] MEDS: DOCUSATE SODIUM 50 MG/SENNA 8.6 MG TAB PO SCH ×2 (09:16→21:00)
--- NOTE | 2017-11-09 10:39 | HHI.PR ---
Subjective Remarks f/u anemia. Patient. Patient doing better doing better already out of bed without dizziness already out of bed without dizziness and weakness. Improved nausea. States she is taking iron. No active bleeding at this time discussed with nursing Objective Vitals Vital Signs Date Time Temp Pulse Resp B/P (MAP) Pulse Ox O2 Delivery O2 Flow Rate FiO2 11/09/17 07:39 98.6 56 20 111/60 (77) 100 11/09/17 05:01 98.8 61 16 118/61 (80) 96 11/09/17 01:06 98.1 51 16 107/64 (78) 97 11/08/17 22:13 98.8 57 18 125/73 100 11/08/17 21:50 59 18 122/66 (84) 100 11/08/17 20:53 62 18 121/61 98 11/08/17 20:24 98.9 78 18 120/56 100 11/08/17 16:37 100 Room Air 11/08/17 11:28 98.8 81 16 101/55 (70) 100 I/O 11/08/17 11/08/17 11/08/17 11/09/17 11/09/17 11/09/17 07:00 15:00 23:00 07:00 15:00 23:00 Intake Total 500 ml Balance 500 ml Packed Cells 400 ml Blood Product IV Normal Saline Flush 100 ml Result Diagram: 11/09/17 0615 11/09/17 0615 Imaging Last Impressions Abdomen/Pelvis CT 11/08/17 1612 Signed Impressions: Service Date/Time: Wednesday, November 08, 2017 19:58 - CONCLUSION: 1. Multi-fibroid uterus with small amount of free fluid in the pelvis. Findings are similar to May 2017. No acute findings within the abdomen or pelvis. Yannick Cortes MD Objective Remarks GENERAL: Middle-aged black female in no distress HEENT: PERRLA, EOMI. No scleral icterus or conjunctival pallor. No lid lag or facial droop. CARDIOVASCULAR: Regular rate and rhythm. No obvious murmurs to auscultation. No chest tenderness to palpation. RESPIRATORY: No obvious rhonchi or wheezing. Clear to auscultation. Breath sounds equal bilaterally. GASTROINTESTINAL: Abdomen soft, generalized slight tenderness to palpation, nondistended. BS normal. MUSCULOSKELETAL: Extremities without clubbing, cyanosis, or edema. No obvious deformities. NEUROLOGICAL: Awake, alert and oriented x4. No focal neurologic deficits. Moving both upper and lower extremities spontaneously. Procedures none A/P Problem List: (1) Anemia ICD Code: D64.9 - Anemia, unspecified (2) Uterine fibroid ICD Code: D25.9 - Leiomyoma of uterus, unspecified Status: Chronic (3) Intractable pain ICD Code: R52 - Pain, unspecified Assessment and Plan 1. Symptomatic anemia. Improved after 1 unit packed RBC. Continue iron and folic acid. 2. Uterine Fibroids: Chronic. CT Abd/Pelvis w/ multi-fibroid uterus similar to previous imaging from May 2017, images reviewed by me. Previously referred to [facility], however has not followed-up, recommended outpatient follow up w/ [facility] for evaluation/intervention. We will request mandatory referral from case management 3. Intractable Pain: secondary to above, s/p multiple doses of analgesics/ antiemetics in ER, will continue w/ medications as needed. Improved 4. DVT Prophylaxis: SCD/teds. Discharge Planning Discharge patient to home Condition on discharge: Improved Regular Diet as tolerated Ad Stephanie activity no driving Rx written: None Follow-up with primary care physician and [employer] Madhu Salamanca MD Nov 09, 2017 10:39
[2017-11-09 11:14] VITALS: BP 109/65; PULSE 60; RESP 19; TEMP 98.3; O2SAT 98
[2017-11-09] MEDS ORDERED: FOLI1TAB6 PO (14:40)
[2017-11-09 14:49] VITALS: BP 126/73; PULSE 53; RESP 20; TEMP 98; O2SAT 100
[2017-11-09] MEDS: FERROUS SULFATE 325 MG (65 MG ELEMENTAL IRON) TAB PO SCH (18:00)
[2017-11-09 20:17] VITALS: BP 138/77; PULSE 53; RESP 14; TEMP 99; O2SAT 96
[2017-11-10 00:41] VITALS: BP 110/66; PULSE 55; RESP 18; TEMP 99; O2SAT 95
[2017-11-10 03:11] VITALS: BP 82/45; PULSE 66; RESP 18; TEMP 98.7; O2SAT 99
[2017-11-10 03:56] VITALS: BP_SYST 94; BP_SYST 98; BP_DIAS 50; BP_DIAS 65; PULSE 64; RESP 18; TEMP 98.3; O2SAT 96
[2017-11-10 07:32] VITALS: BP 103/60; PULSE 53; RESP 16; TEMP 98; O2SAT 99
--- NOTE | 2017-11-10 08:27 | HHI.DS ---
Discharge Summary Admission Date Nov 08, 2017 at 21:39 Discharge Date: Nov 10, 2017 Admitting Diagnosis Symptomatic anemia, abdominal pain (1) Anemia ICD Code: D64.9 - Anemia, unspecified (2) Uterine fibroid ICD Code: D25.9 - Leiomyoma of uterus, unspecified Status: Chronic (3) Intractable pain ICD Code: R52 - Pain, unspecified Procedures none Brief History - From Admission This is a 42-year-old female with a PMH of Uterine Fibroids, Iron Deficiency Anemia requiring transfusions and Tobacco Abuse who presented to the ER with complaints of abdominal pain, nausea, vomiting and weakness for approx 1wk. States pain is generalized, intermittent, 8/10, associated w/ nausea/vomiting. Denies fever or chills. On arrival, BP 101/55, HR 81, O2 sat 100% on RA, Afebrile. Hemoglobin 6.8, previously 7.1 on 11/07/17, 7.9 on 05/08/17. H/o similar symptoms in the past for vaginal bleeding/anemia requiring transfusion due to uterine fibroids. Was told to follow up w/ Shuttle Inspector for eval however states she can't afford it. 1u pRBC ordered in ER, pending transfusion. Has required multiple doses of analgesics and antiemetics in ER. CT Abd/Pelvis with multi- fibroid uterus and small amount of free fluid in pelvis, findings similar to May 2017, no acute findings. CBC/BMP: 11/09/17 0615 11/09/17 0615 Significant Findings Laboratory Tests Test 11/08/17 20:26 11/09/17 06:15 Hemoglobin 6.8 GM/DL (11.6-15.3) 7.7 GM/DL (11.6-15.3) Hematocrit 23.6 % (35.0-46.0) 24.9 % (35.0-46.0) Mean Corpuscular Volume 55.3 FL (80.0-100.0) 60.3 FL (80.0-100.0) Mean Corpuscular Hemoglobin 16.0 PG (27.0-34.0) 18.7 PG (27.0-34.0) Mean Corpuscular Hemoglobin Concent 28.9 % (32.0-36.0) 31.0 % (32.0-36.0) Red Cell Distribution Width 23.7 % (11.6-17.2) 29.8 % (11.6-17.2) Platelet Count 702 TH/MM3 (150-450) 576 TH/MM3 (150-450) Monocytes % 11 % (0-8) Platelet Estimate HIGH (NORMAL) HIGH (NORMAL) Target Cells 2+ (NORMAL) 2+ (NORMAL) Ovalocytes 1+ (NORMAL) 1+ (NORMAL) Aspartate Amino Transf (AST/SGOT) 9 U/L (15-37) 9 U/L (15-37) Monocytes (%) (Auto) 8.1 % (0.0-8.0) Keratocytes OCC (NORMAL) Albumin 2.9 GM/DL (3.4-5.0) Calcium Level 7.9 MG/DL (8.5-10.1) Chloride Level 108 MEQ/L (98-107) Imaging Last Impressions Abdomen/Pelvis CT 11/08/17 1612 Signed Impressions: Service Date/Time: Wednesday, November 08, 2017 19:58 - CONCLUSION: 1. Multi-fibroid uterus with small amount of free fluid in the pelvis. Findings are similar to May 2017. No acute findings within the abdomen or pelvis. Yannick Cortes MD PE at Discharge GENERAL: Middle-aged black female in no distress HEENT: PERRLA, EOMI. No scleral icterus or conjunctival pallor. No lid lag or facial droop. CARDIOVASCULAR: Regular rate and rhythm. No obvious murmurs to auscultation. No chest tenderness to palpation. RESPIRATORY: No obvious rhonchi or wheezing. Clear to auscultation. Breath sounds equal bilaterally. GASTROINTESTINAL: Abdomen soft, generalized slight tenderness to palpation, nondistended. BS normal. MUSCULOSKELETAL: Extremities without clubbing, cyanosis, or edema. No obvious deformities. NEUROLOGICAL: Awake, alert and oriented x4. No focal neurologic deficits. Moving both upper and lower extremities spontaneously. Pt update on day of discharge Patient is in bed. She appears to not acute distress. Says she no nausea no vomiting. She was able to eat yesterday down. Still with some abdominal pain however improved. No bleeding. H&H is stable. Hospital Course 42-year-old female came to the emergency room with symptomatic anemia, she has a history of uterine fibroids. She was also noted with abdominal pain, nausea vomiting. She was transfused 1 unit of blood H&H stable.. Pain better controlled no nausea or vomiting unable to keep down food. Gynecology is outpatient. Advised compliance with taking medications and follow-up. Symptomatic anemia. Improved after 1 unit packed RBC. Continue iron and folic acid. Uterine Fibroids: Chronic. CT Abd/Pelvis w/ multi-fibroid uterus similar to previous imaging from May 2017, images reviewed by me. Previously referred to Shuttle Inspector, however has not followed-up, recommended outpatient follow up w/ Shuttle Inspector for evaluation/intervention. We will request mandatory referral from case management Intractable Pain: secondary to above, s/p multiple doses of analgesics/ antiemetics in ER, will continue w/ medications as needed. Improved Discharge Planning Discharge patient to home Condition on discharge: Improved Regular Diet as tolerated Ad Stephanie activity no driving Rx written: None Follow-up with primary care physician and PHYSICIAN NON INVASIVE CARDIOLOGIST Pt Condition on Discharge: Stable Discharge Disposition: Discharge Home Discharge Time: > 30 minutes Discharge Instructions DIET: Follow Instructions for: As Tolerated, No Restrictions Activities you can perform: Regular-No Restrictions Follow up Referrals: HEDDLER TIER - 1 Week @ [facility] PCP Follow-up - 1 Week New Medications: Ferrous Sulfate (Ferrous Sulfate) 325 Mg (65 Mg Iron) Tablet 325 MG PO BIDPC for Nutritional Supplement, #60 TAB 0 Refills Hydrocodone-Acetaminophen ([place]) 5 Mg-325 Mg Tab 1 TAB PO Q6H PRN for PAIN, #7 TAB 0 Refills Folic Acid (Folic Acid) 1 Mg Tablet 1 MG PO DAILY for anemia, #30 TAB aN Rankin MD Nov 10, 2017 08:27
[2017-11-10] MEDS ORDERED: NORC5TAB PO (08:28)
[2017-11-10] MEDS: DOCUSATE SODIUM 50 MG/SENNA 8.6 MG TAB PO SCH (09:14)
[2017-11-10] MEDS: FERROUS SULFATE 325 MG (65 MG ELEMENTAL IRON) TAB PO SCH (09:14)
[2017-11-10] MEDS: FOLIC ACID 1 MG TAB PO SCH (09:15)
[2017-11-10] MEDS: ACETAMINOPHEN/HYDROcodone 325 MG/5 MG TAB PO PRN (09:15)
[2017-11-10] MEDS: SODIUM CHLORIDE 0.9% FLUSH 10 ML FLUSH IV FLUSH SCH (09:15)
== END 2017-11-10 11:27 | disposition home or self-care (01) ==
LOC: NEPC 11:19 → NEDA 21:39 → NEPFCDU 22:36
PROVIDERS: ADMIT Hospitalist; ATTEND Hospitalist
DX: D50.0 Iron deficiency anemia secondary to blood loss (chronic) (principal); N93.8 Other specified abnormal uterine and vaginal bleeding; D25.9 Leiomyoma of uterus, unspecified; R10.9 Unspecified abdominal pain; R11.2 Nausea with vomiting, unspecified; F17.200 Nicotine dependence, unspecified, uncomplicated
CPT/HCPCS: 74177; 80053; 83690; 85007; 85025; 85027; 86850; 86900; 86901; 86920; 96361; 96374; 96375; 96376; 99285; G0378; J2270; J2405; J7030; J7050; P9016; Q9963; Q9967; 36430

== ENCOUNTER 2018-01-17 00:04 | Emergency (ER) | END 2018-01-17 05:26 | disposition home or self-care (01) | DX: D25.9 Leiomyoma of uterus, unspecified (principal); D64.9 Anemia, unspecified; J44.9 Chronic obstructive pulmonary disease, unspecified; R10.9 Unspecified abdominal pain; Z72.0 Tobacco use ==

== ENCOUNTER 2018-01-22 13:42 | Emergency (ER) | payer SELFPAY ==
[~2018-01-22] VITALS: Ht 160 cm; Wt 55.0 kg
[~2018-01-22 13:42] MED LIST changes: +FERR325T18 PO; +HYDR-3288 PO; +IBUP-232 PO; -MOBI15TA PO; -TRAM50TA PO
[2018-01-22 13:47] VITALS: BP 113/66; PULSE 87; RESP 18; TEMP 98.6; O2SAT 100
[2018-01-22] MEDS ORDERED: DICL75TA PO (14:53)
[2018-01-22] MEDS ORDERED: TRAM50TA PO (14:53)
[2018-01-22] MEDS ORDERED: KETOROLAC TROMETHAMINE 60 MG/2 ML (IM) VIAL IM ONE (15:00)
--- NOTE | 2018-01-22 15:02 | PD ---
HPI Chief Complaint: Promotions Intern Problem/Complaint Time Seen by Provider: 14:37 Travel History International Travel<30 days: No Contact w/Intl Traveler<30days: No Traveled to known affect area: No History of Present Illness HPI This is a 42-year-old female who has a history of uterine fibroids. She presents for evaluation of chronic pain. She reports chronic pubic pain secondary to her fibroids, aching, worse with palpation. She reports that she is currently on her menstrual period, started Friday, so she has been having some vaginal bleeding. She denies nausea, vomiting, dysuria, increased urinary frequency or hesitancy, fevers or chills. She was seen here on January 17 for similar complaints and at that time she was prescribed hydrocodone. She has run out of the hydrocodone. She is not currently using anything over-the- counter for symptom relief. Return if she has been seen here several times in the past for similar complaints. She reports that at some point in the past she saw urologist Dr. Gayle who told her that he was going to refer her to a refresh technician to discuss hysterectomy however this has not yet been accomplished. PFSH Past Medical History Anemia: Yes Asthma: No Blood Disorders: No Heart Rhythm Problems: Yes (IRREGULAR HEARTBEAT) Cancer: No Cardiovascular Problems: Yes High Cholesterol: No Chemotherapy: No Chest Pain: No Congestive Heart Failure: No COPD: Yes Diabetes: No Diminished Hearing: No Endocrine: No Gastrointestinal Disorders: No Genitourinary: Yes (Fibroids) Immune Disorder: No Implanted Vascular Access Dvce: No Musculoskeletal: No Neurologic: No Psychiatric: No Reproductive: No Respiratory: Yes (SOB UPON EXERTION) Radiation Therapy: No Sleep Apnea: No Thyroid Disease: No ?: Not LMP: 01/22/18 : 1 Para: 1 Past Surgical History Pacemaker: No Other Surgery: No Social History Alcohol Use: No Tobacco Use: Yes Substance Use: No Allergies-Medications (Allergen,Severity, Reaction): Coded Allergies: penicillin G (Unverified Allergy, Severe, HIVES, 11/08/17) Reported Meds & Prescriptions Reported Meds & Active Scripts Active Diclofenac Sodium DR (Diclofenac Sodium) 75 Mg Tabdr 75 Mg PO BID 10 Days Tramadol (Tramadol HCl) 50 Mg Tab 50 Mg PO Q6H PRN Ibuprofen 600 Mg Tab 600 Mg PO Q6H PRN [place] (Hydrocodone-Acetaminophen) 7.5-325 mg Tab 1 Tab PO Q4H PRN Ferrous Sulfate 325 Mg (65 Mg Iron) Tablet 325 Mg PO BIDPC Review of Systems Except as stated in HPI: all other systems reviewed are Neg Physical Exam Narrative GENERAL: Well-developed well-nourished female no acute distress SKIN: Warm and dry. HEAD: Atraumatic. Normocephalic. EYES: Pupils equal and round. No scleral icterus. No injection or drainage. ENT: No nasal bleeding or discharge. Mucous membranes pink and moist. NECK: Trachea midline. No JVD. CARDIOVASCULAR: Regular rate and rhythm. No murmur appreciated. RESPIRATORY: No accessory muscle use. Clear to auscultation. Breath sounds equal bilaterally. GASTROINTESTINAL: Abdomen soft, suprapubic tenderness to palpation without guarding. MUSCULOSKELETAL: No obvious deformities. No clubbing. No cyanosis. No edema. NEUROLOGICAL: Awake and alert. No obvious cranial nerve deficits. Motor grossly within normal limits. Normal speech. Data Data Last Documented VS Vital Signs Date Time Temp Pulse Resp B/P (MAP) Pulse Ox O2 Delivery O2 Flow Rate FiO2 01/22/18 13:47 98.6 87 18 113/66 (82) 100 Orders Orders Ketorolac Inj (Toradol Inj) (01/22/18 15:00) MDM Medical Decision Making Medical Screen Exam Complete: Yes Emergency Medical Condition: Yes Medical Record Reviewed: Yes Differential Diagnosis Uterine fibroid, dysmenorrhea, endometriosis, cystitis Narrative Course I reviewed the patient's records. Most recently she was seen here in January 17 and she had a normal urinalysis at that time. At this point time the plan is to treat the patient's pain and have her follow-up with a refresh technician. She will be given a dose of Toradol here and discharged with tramadol and diclofenac. 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 Take diclofenac with meals. Do not drive or drink alcohol and taking tramadol. Follow-up with a refresh technician to discuss definitive treatment. Return for any emergent medical conditions. Med/Other Pt SpecificInfo: Prescription(s) given Scripts Diclofenac Sodium DR (Diclofenac Sodium DR) 75 Mg Tabdr 75 MG PO BID for 10 Days, #20 TAB 0 Refills Prov: Harleen Rahman MD 01/22/18 Tramadol (Tramadol) 50 Mg Tab 50 MG PO Q6H Y for PAIN, #15 TAB 0 Refills Prov: Harleen Rahman MD 01/22/18 Disposition: 01 DISCHARGE HOME Condition: Stable [place] January 22, 2018 15:02
== END 2018-01-22 15:53 | disposition home or self-care (01) ==
LOC: NEPA 13:42
DX: D25.9 Leiomyoma of uterus, unspecified (principal); G89.29 Other chronic pain; J44.9 Chronic obstructive pulmonary disease, unspecified; D64.9 Anemia, unspecified; I49.9 Cardiac arrhythmia, unspecified; Z72.0 Tobacco use
CPT/HCPCS: 96372; 99283; J1885